=== PATIENT | female | born 1935 | race Caucasian/White ===

== ENCOUNTER → 2016-10-07 | Outpatient (CLI) | payer MEDICARE ==
[~2016-10-07] MED LIST: ALTA10CA10 PO; CALTTAB PO; CARV25TA PO; FURO1TAB61 PO; HUMALOG SQ; LANTUS2P SQ; LORA-474 PO; POTA10TA8 PO; ZOCO40TA PO
[2016-10-07 10:30] LABS: BICARBONATE 27.3 MEQ/L (21.0-32.0); POTASSIUM 4.6 MEQ/L (3.5-5.1)
== END ==
LOC: CLAB 09:38
PROVIDERS: ATTEND Internal Medicine Interventional Cardiology
DX: R60.0 Localized edema (principal); I25.10 Atherosclerotic heart disease of native coronary artery without angina pectoris; Z79.01 Long term (current) use of anticoagulants
CPT/HCPCS: 36415; 80048

== ENCOUNTER → 2016-10-19 | Outpatient (CLI) | payer MEDICARE ==
[2016-10-19 10:22] LABS: INTERNATIONAL NORMALIZED RATIO 2.7 RATIO; PROTHROMBIN TIME - PATIENT 31.1 SEC (9.8-11.6)
== END ==
LOC: CLAB 09:50
PROVIDERS: ATTEND Internal Medicine Interventional Cardiology
DX: I48.2 Chronic atrial fibrillation (principal); Z79.01 Long term (current) use of anticoagulants
CPT/HCPCS: 36415; 85610

== ENCOUNTER → 2016-11-09 | Outpatient (CLI) | payer MEDICARE ==
[2016-11-09 10:05] LABS: AUTOMATED NEUTROPHIL # 3.4 TH/MM3 (1.8-7.7); BASOPHIL # 0.1 TH/MM3 (0-0.2); BASOPHIL % 1.4 % (0.0-2.0); EOSINOPHIL # 0.2 TH/MM3 (0-0.4); EOSINOPHIL % 2.8 % (0.0-4.0); HEMATOCRIT 35.1 % (35.0-46.0); HEMO FLAGS DIFF FINAL; LYMPH % 29.7 % (9.0-44.0); LYMPHOCYTE # 1.7 TH/MM3 (1.0-4.8); MEAN CELL VOLUME 86.4 FL (80.0-100.0); MEAN CORPUSCULAR HGB CONC 33.6 % (32.0-36.0); MONO % 7.7 % (0.0-8.0); NEUT % 58.4 % (16.0-70.0); PLATELET COUNT 264 TH/MM3 (150-450); RED BLOOD COUNT 4.06 MIL/MM3 (4.00-5.30); WHITE BLOOD COUNT 5.9 TH/MM3 (4.0-11.0)
[2016-11-09 10:34] LABS: ALT (GPT) 29 U/L (10-53); ANION GAP 9 MEQ/L (5-15); AST (GOT) 18 U/L (15-37); BICARBONATE 24.1 MEQ/L (21.0-32.0); BLOOD UREA NITROGEN 74 MG/DL (7-18); CHLORIDE 106 MEQ/L (98-107); GLOMERULAR FILTRATION RATE 23 ML/MIN (>89); GLUCOSE,FASTING 143 MG/DL (74-99); POTASSIUM 4.5 MEQ/L (3.5-5.1); SODIUM (NA) 139 MEQ/L (136-145)
[2016-11-09 10:37] LABS: ALKALINE PHOSPHATASE 91 U/L (45-117); HDL CHOLESTEROL 45.7 MG/DL (40.0-60.0); LDL CHOLESTEROL 79 MG/DL (0-99); TOTAL BILIRUBIN ADULT 0.4 MG/DL (0.2-1.0)
[2016-11-09 10:48] LABS: HEMOGLOBIN A1a 1.2 %; HEMOGLOBIN A1b 2.5 %; HEMOGLOBIN Ao 79.2 %; HEMOGLOBIN LA1C 2.8 %; HEMOGLOBIN P3 7.7 %
== END ==
LOC: CLAB 09:44
PROVIDERS: ATTEND Internal Medicine
DX: E11.65 Type 2 diabetes mellitus with hyperglycemia (principal); I10 Essential (primary) hypertension
CPT/HCPCS: 36415; 80053; 80061; 83036; 85025

== ENCOUNTER → 2016-11-17 | Outpatient (CLI) | payer MEDICARE ==
[2016-11-17 10:05] LABS: INTERNATIONAL NORMALIZED RATIO 3.6 RATIO; PROTHROMBIN TIME - PATIENT 42.3 SEC (9.8-11.6)
== END ==
LOC: CLAB 09:32
PROVIDERS: ATTEND Internal Medicine Interventional Cardiology
DX: I48.2 Chronic atrial fibrillation (principal); Z79.01 Long term (current) use of anticoagulants
CPT/HCPCS: 36415; 85610

== ENCOUNTER → 2016-12-01 | Outpatient (CLI) | payer MEDICARE ==
[2016-12-01 10:24] LABS: INTERNATIONAL NORMALIZED RATIO 2.4 RATIO; PROTHROMBIN TIME - PATIENT 27.1 SEC (9.8-11.6)
== END ==
LOC: CLAB 09:48
PROVIDERS: ATTEND Internal Medicine Interventional Cardiology
DX: I48.2 Chronic atrial fibrillation (principal); Z79.01 Long term (current) use of anticoagulants
CPT/HCPCS: 36415; 85610

== ENCOUNTER → 2016-12-10 | Outpatient (CLI) | payer MEDICARE ==
[2016-12-10 10:15] LABS: HDL CHOLESTEROL 46.4 MG/DL (40.0-60.0)
== END ==
LOC: CLAB 09:26
PROVIDERS: ATTEND Internal Medicine Interventional Cardiology
DX: I25.9 Chronic ischemic heart disease, unspecified (principal); I25.10 Atherosclerotic heart disease of native coronary artery without angina pectoris; R60.0 Localized edema; Z79.01 Long term (current) use of anticoagulants
CPT/HCPCS: 36415; 80061; 84450; 84460

== ENCOUNTER → 2016-12-29 | Outpatient (CLI) | payer MEDICARE ==
[2016-12-29 10:09] LABS: INTERNATIONAL NORMALIZED RATIO 3.3 RATIO; PROTHROMBIN TIME - PATIENT 38.1 SEC (9.8-11.6)
== END ==
LOC: CLAB 09:42
PROVIDERS: ATTEND Internal Medicine Interventional Cardiology
DX: I48.2 Chronic atrial fibrillation (principal); Z79.01 Long term (current) use of anticoagulants
CPT/HCPCS: 36415; 85610

== ENCOUNTER → 2017-01-12 | Outpatient (CLI) | payer MEDICARE ==
[2017-01-12 10:15] LABS: PROTHROMBIN TIME - PATIENT 46.7 SEC (9.8-11.6)
== END ==
LOC: CLAB 09:45
PROVIDERS: ATTEND Internal Medicine Interventional Cardiology
DX: I48.2 Chronic atrial fibrillation (principal); Z79.01 Long term (current) use of anticoagulants
CPT/HCPCS: 36415; 85610

== ENCOUNTER → 2017-01-31 | Outpatient (CLI) | payer MEDICARE ==
[2017-01-31 09:52] LABS: INTERNATIONAL NORMALIZED RATIO 3.2 RATIO; PROTHROMBIN TIME - PATIENT 37.2 SEC (9.8-11.6)
== END ==
LOC: CLAB 09:15
PROVIDERS: ATTEND Internal Medicine Interventional Cardiology
DX: I48.2 Chronic atrial fibrillation (principal); Z79.01 Long term (current) use of anticoagulants
CPT/HCPCS: 36415; 85610

== ENCOUNTER → 2017-02-01 | Outpatient (CLI) | payer MEDICARE ==
[2017-02-01 09:05] LABS: INTERNATIONAL NORMALIZED RATIO 3.3 RATIO; PROTHROMBIN TIME - PATIENT 38.1 SEC (9.8-11.6)
== END ==
LOC: CLAB 08:40
PROVIDERS: ATTEND Internal Medicine Interventional Cardiology
DX: Z79.01 Long term (current) use of anticoagulants (principal)
CPT/HCPCS: 36415; 85610

== ENCOUNTER → 2017-02-03 | Outpatient (CLI) | payer MEDICARE ==
[2017-02-03 09:05] LABS: INTERNATIONAL NORMALIZED RATIO 2.8 RATIO; PROTHROMBIN TIME - PATIENT 32.1 SEC (9.8-11.6)
== END ==
LOC: CLAB 08:41
PROVIDERS: ATTEND Internal Medicine Interventional Cardiology
DX: G45.9 Transient cerebral ischemic attack, unspecified (principal); Z79.01 Long term (current) use of anticoagulants
CPT/HCPCS: 36415; 85610

== ENCOUNTER → 2017-02-16 | Outpatient (CLI) | payer MEDICARE ==
[2017-02-16 10:47] LABS: AUTOMATED NEUTROPHIL # 3.7 TH/MM3 (1.8-7.7); BASOPHIL # 0.1 TH/MM3 (0-0.2); EOSINOPHIL # 0.1 TH/MM3 (0-0.4); EOSINOPHIL % 2.3 % (0.0-4.0); HEMATOCRIT 33.3 % (35.0-46.0); HEMO FLAGS DIFF FINAL; LYMPH % 25.7 % (9.0-44.0); LYMPHOCYTE # 1.5 TH/MM3 (1.0-4.8); MEAN CELL VOLUME 87.1 FL (80.0-100.0); MEAN CORPUSCULAR HEMOGLOBIN 29.4 PG (27.0-34.0); MEAN CORPUSCULAR HGB CONC 33.7 % (32.0-36.0); MONO % 6.9 % (0.0-8.0); NEUT % 63.1 % (16.0-70.0); PLATELET COUNT 286 TH/MM3 (150-450); RED BLOOD COUNT 3.82 MIL/MM3 (4.00-5.30); RED CELL DISTRIBUTION WIDTH 14.1 % (11.6-17.2); WHITE BLOOD COUNT 5.8 TH/MM3 (4.0-11.0)
[2017-02-16 11:08] LABS: ANION GAP 6 MEQ/L (5-15); BICARBONATE 25.9 MEQ/L (21.0-32.0); BLOOD UREA NITROGEN 42 MG/DL (7-18); CHLORIDE 110 MEQ/L (98-107); GLOMERULAR FILTRATION RATE 33 ML/MIN (>89); GLUCOSE,FASTING 118 MG/DL (74-99); POTASSIUM 4.1 MEQ/L (3.5-5.1); SODIUM (NA) 142 MEQ/L (136-145)
[2017-02-16 11:17] LABS: ALKALINE PHOSPHATASE 109 U/L (45-117); ALT (GPT) 29 U/L (10-53); AST (GOT) 22 U/L (15-37); FREE T4 1.15 NG/DL (0.76-1.46); HDL CHOLESTEROL 44.6 MG/DL (40.0-60.0); LDL CHOLESTEROL 76 MG/DL (0-99); TOTAL BILIRUBIN ADULT 0.5 MG/DL (0.2-1.0)
[2017-02-16 17:53] LABS: HEMOGLOBIN A1a 0.9 %; HEMOGLOBIN A1b 2.3 %; HEMOGLOBIN Ao 80.5 %; HEMOGLOBIN LA1C 2.6 %; HEMOGLOBIN P3 7.3 %
== END ==
LOC: CLAB 09:43
PROVIDERS: ATTEND Internal Medicine
DX: E11.65 Type 2 diabetes mellitus with hyperglycemia (principal); E78.00 Pure hypercholesterolemia, unspecified
CPT/HCPCS: 36415; 80053; 80061; 83036; 84439; 84443; 85025

== ENCOUNTER → 2017-02-23 | Outpatient (CLI) | payer MEDICARE ==
[2017-02-23 09:48] LABS: INTERNATIONAL NORMALIZED RATIO 2.4 RATIO; PROTHROMBIN TIME - PATIENT 27.1 SEC (9.8-11.6)
== END ==
LOC: CLAB 09:13
PROVIDERS: ATTEND Internal Medicine Interventional Cardiology
DX: Z79.01 Long term (current) use of anticoagulants (principal)
CPT/HCPCS: 36415; 85610

== ENCOUNTER → 2017-03-22 | Outpatient (CLI) | payer MEDICARE ==
[2017-03-22 09:55] LABS: PROTHROMBIN TIME - PATIENT 23.2 SEC (9.8-11.6)
[2017-03-22 10:18] LABS: BICARBONATE 25.4 MEQ/L (21.0-32.0); POTASSIUM 4.5 MEQ/L (3.5-5.1)
== END ==
LOC: CLAB 09:22
PROVIDERS: ATTEND Internal Medicine Interventional Cardiology
DX: I48.2 Chronic atrial fibrillation (principal); I25.10 Atherosclerotic heart disease of native coronary artery without angina pectoris; I50.21 Acute systolic (congestive) heart failure; R60.0 Localized edema; R06.02 Shortness of breath; Z79.01 Long term (current) use of anticoagulants
CPT/HCPCS: 36415; 80048; 85610

== ENCOUNTER → 2017-04-18 | Outpatient (CLI) | payer MEDICARE ==
[2017-04-18 10:11] LABS: INTERNATIONAL NORMALIZED RATIO 1.9 RATIO; PROTHROMBIN TIME - PATIENT 21.7 SEC (9.8-11.6)
== END ==
LOC: CLAB 09:41
PROVIDERS: ATTEND Internal Medicine Interventional Cardiology
DX: I48.2 Chronic atrial fibrillation (principal); Z79.01 Long term (current) use of anticoagulants
CPT/HCPCS: 36415; 85610

== ENCOUNTER → 2017-05-02 | Outpatient (CLI) | payer MEDICARE ==
[2017-05-02 13:15] LABS: INTERNATIONAL NORMALIZED RATIO 1.9 RATIO; PROTHROMBIN TIME - PATIENT 21.7 SEC (9.8-11.6)
== END ==
LOC: CLAB 12:48
PROVIDERS: ATTEND Internal Medicine Interventional Cardiology
DX: I48.2 Chronic atrial fibrillation (principal); Z79.01 Long term (current) use of anticoagulants
CPT/HCPCS: 36415; 85610

== ENCOUNTER → 2017-05-17 | Outpatient (CLI) | payer MEDICARE ==
[2017-05-17 10:34] LABS: INTERNATIONAL NORMALIZED RATIO 2.4 RATIO; PROTHROMBIN TIME - PATIENT 27.3 SEC (9.8-11.6)
== END ==
LOC: CLAB 09:39
PROVIDERS: ATTEND Internal Medicine Interventional Cardiology
DX: I48.2 Chronic atrial fibrillation (principal); Z79.01 Long term (current) use of anticoagulants
CPT/HCPCS: 36415; 85610

== ENCOUNTER → 2017-05-31 | Outpatient (CLI) | payer MEDICARE ==
[2017-05-31 09:34] LABS: AUTOMATED NEUTROPHIL # 3.3 TH/MM3 (1.8-7.7); BASOPHIL # 0.1 TH/MM3 (0-0.2); BASOPHIL % 1.3 % (0.0-2.0); EOSINOPHIL # 0.2 TH/MM3 (0-0.4); EOSINOPHIL % 3.4 % (0.0-4.0); HEMATOCRIT 35.2 % (35.0-46.0); HEMO FLAGS DIFF FINAL; LYMPH % 28.7 % (9.0-44.0); LYMPHOCYTE # 1.6 TH/MM3 (1.0-4.8); MEAN CELL VOLUME 87.3 FL (80.0-100.0); MEAN CORPUSCULAR HEMOGLOBIN 29.3 PG (27.0-34.0); MEAN CORPUSCULAR HGB CONC 33.5 % (32.0-36.0); MONO % 7.3 % (0.0-8.0); NEUT % 59.3 % (16.0-70.0); PLATELET COUNT 233 TH/MM3 (150-450); RED BLOOD COUNT 4.04 MIL/MM3 (4.00-5.30); WHITE BLOOD COUNT 5.5 TH/MM3 (4.0-11.0)
[2017-05-31 10:33] LABS: CHLORIDE 111 MEQ/L (98-107); FREE T4 1.07 NG/DL (0.76-1.46); SODIUM (NA) 142 MEQ/L (136-145)
[2017-05-31 11:06] LABS: ALKALINE PHOSPHATASE 106 U/L (45-117); AST (GOT) 16 U/L (15-37); BLOOD UREA NITROGEN 59 MG/DL (7-18); GLOMERULAR FILTRATION RATE 29 ML/MIN (>89); GLUCOSE,FASTING 112 MG/DL (74-99)
[2017-05-31 11:07] LABS: ALT (GPT) 27 U/L (10-53); ANION GAP 8 MEQ/L (5-15); BICARBONATE 23.1 MEQ/L (21.0-32.0); TOTAL BILIRUBIN ADULT 0.4 MG/DL (0.2-1.0)
[2017-05-31 11:08] LABS: HDL CHOLESTEROL 43.7 MG/DL (40.0-60.0); LDL CHOLESTEROL 77 MG/DL (0-99)
[2017-05-31 12:30] LABS: HEMOGLOBIN A1a 0.9 %; HEMOGLOBIN A1b 2.3 %; HEMOGLOBIN Ao 80.5 %; HEMOGLOBIN LA1C 2.5 %; HEMOGLOBIN P3 7.2 %
== END ==
LOC: CLAB 09:06
PROVIDERS: ATTEND Internal Medicine Interventional Cardiology
DX: I25.10 Atherosclerotic heart disease of native coronary artery without angina pectoris (principal); I25.9 Chronic ischemic heart disease, unspecified; I50.21 Acute systolic (congestive) heart failure; R60.0 Localized edema; E78.00 Pure hypercholesterolemia, unspecified; E11.65 Type 2 diabetes mellitus with hyperglycemia; I10 Essential (primary) hypertension; R06.02 Shortness of breath
CPT/HCPCS: 36415; 80053; 80061; 83036; 84439; 84443; 85025

== ENCOUNTER → 2017-06-07 | Outpatient (CLI) | payer MEDICARE | LOC: CLAB 10:18 | PROVIDERS: ATTEND Internal Medicine Interventional Cardiology | DX: I48.2 Chronic atrial fibrillation (principal); Z79.01 Long term (current) use of anticoagulants | CPT/HCPCS: 36415; 85610 ==

== ENCOUNTER → 2017-07-12 | Outpatient (CLI) | payer MEDICARE ==
[2017-07-12 10:55] LABS: INTERNATIONAL NORMALIZED RATIO 2.8 RATIO; PROTHROMBIN TIME - PATIENT 31.9 SEC (9.8-11.6)
== END ==
LOC: CLAB 10:12
PROVIDERS: ATTEND Internal Medicine Interventional Cardiology
DX: I48.2 Chronic atrial fibrillation (principal); Z79.01 Long term (current) use of anticoagulants
CPT/HCPCS: 36415; 85610

== ENCOUNTER 2017-08-21 12:11 | Emergency (ER) | payer MEDICARE ==
[~2017-08-21] VITALS: Ht 157.5 cm; Wt 95.5 kg
[~2017-08-21 12:11] MED LIST changes: -ALTA10CA10 PO; +ALTA10CA12 PO
[2017-08-21 12:17] VITALS: BP 168/72; PULSE 78; RESP 16; TEMP 97.8; O2SAT 97
[2017-08-21] MEDS ORDERED: COUM2TAB PO ×2 (12:32)
[2017-08-21] MEDS ORDERED: COUM1TAB PO (12:32)
--- NOTE | 2017-08-21 12:38 | PD ---
HPI Chief Complaint: Skin Problem Time Seen by Provider: 12:27 Travel History International Travel<30 days: No Contact w/Intl Traveler<30days: No Traveled to known affect area: No History of Present Illness HPI This is an 82-year-old female who presents to the emergency department having woken up this morning with bleeding from her right upper arm. She woke up around 4 AM. The bleeding has been intermittent since then but every hour or so she notices that she's bled through the bandage that she's placed on the wound. Her symptoms of been moderate severity with no associated lightheadedness or dizziness. She does feel little bit anxious. She is on Coumadin and didn't get her INR checked last week when she was scheduled because she forgot. She says she is on Coumadin for open heart surgery. She says she doesn't have a mechanical valve, and she has had a possible TIA versus stroke in the past. PFSH Past Medical History Hx Anticoagulant Therapy: Yes (coumadin) Arthritis: Yes (HANDS) Asthma: No Autoimmune Disease: No Blood Disorders: No Anxiety: Yes Depression: No Heart Rhythm Problems: Yes Cancer: No Cardiac Catheterization: Yes Cardiovascular Problems: Yes High Cholesterol: Yes Chemotherapy: No Chest Pain: Yes Congestive Heart Failure: Yes COPD: No Cerebrovascular Accident: Yes (1984 AND POSSIBLE TIA 12/11/12) Coronary Artery Disease: Yes Diabetes: Yes Patient Takes Glucophage: No Diminished Hearing: Yes ([place] BILATERAL) Endocrine: Yes Gastrointestinal Disorders: Yes GERD: No Glaucoma: No Genitourinary: No Headaches: No Hepatitis: No Hiatal Hernia: Yes Hypertension: Yes Immune Disorder: No Implanted Vascular Access Dvce: Yes Kidney Stones: No Musculoskeletal: Yes (ARTHRITIS HANDS) Neurologic: Yes (BELLS PALSY) Psychiatric: Yes Reproductive: No Respiratory: No Immunizations Current: Yes Migraines: No Myocardial Infarction: Yes Radiation Therapy: No Renal Failure: No Seizures: No Sickle Cell Disease: No Sleep Apnea: No Thyroid Disease: No Ulcer: No Tetanus Vaccination: > 5 Years Influenza Vaccination: No PNEUMOCCOCAL Vaccine (Year): 1 ?: Not Menopausal: Yes Past Surgical History Abdominal Surgery: Yes (GALL BLADDER) AICD: Yes Appendectomy: No Arteriovenous Shunt: No Body Medical Devices: AICD Cardiac Surgery: Yes (DEFIBRILLATOR) Cholecystectomy: Yes Coronary Artery Bypass Graft: Yes (X4 ) Coronary Stent: Yes (X1) Ear Surgery: No Endocrine Surgery: No Eye Surgery: Yes (LEFT EYE CATARACTS) Genitourinary Surgery: No Gynecologic Surgery: Yes (ABSCESS GLAND VAGINA) Insulin Pump: No Joint Replacement: No Neurologic Surgery: No Oral Surgery: No Pacemaker: Yes Thoracic Surgery: No Other Surgery: Yes (CABG X4/GALLBLADDER) Family History Family Myocardial Infarction: Yes Social History Alcohol Use: No Tobacco Use: No Substance Use: No Allergies-Medications (Allergen,Severity, Reaction): Coded Allergies: ciprofloxacin (Unverified Allergy, Severe, Numbness, 08/21/17) diatrizoate meglumine (Unverified Allergy, Severe, Hives, 08/21/17) erythromycin base (Unverified Allergy, Severe, MAKES ME DOOPY, 08/21/17) gadobenic acid (Unverified Allergy, Severe, Hives, 08/21/17) gadodiamide (Unverified Allergy, Severe, Hives, 08/21/17) gadoteridol (Unverified Allergy, Severe, Hives, 08/21/17) iodixanol (Unverified Allergy, Severe, Hives, 08/21/17) iohexol (Unverified Allergy, Severe, Hives, 08/21/17) penicillin G (Unverified Allergy, Severe, RASH, 08/21/17) colchicine (Unverified Allergy, Unknown, 08/21/17) Reported Meds & Prescriptions Reported Meds & Active Scripts Active Ativan (Lorazepam) 1 Mg Tab 1 Mg PO DIRECTED PRN 1/2 am, 10/04 4:30pm, 1 hs Zocor (Simvastatin) 40 Mg Tab 40 Mg PO HS Reported Coumadin (Warfarin) 1 Mg Tab 1.5 Mg PO TUE/TUE/TUE/TUE/TUE Coumadin (Warfarin) 2 Mg Tab 2 Mg PO TUESDAY Coumadin (Warfarin) 2 Mg Tab 2 Mg PO TUESDAY Lasix (Furosemide) 80 Mg Tab 80 Mg PO DAILY Lantus Inj (Insulin Glargine) 1,000 Unit/10 Ml Vial 50 Units SQ HS Humalog Inj (Insulin Human Lispro) 1,000 Unit/10 Ml Vial 2-12 Units SQ ACHS SLIDING SCALE Max dose at bedtime:( )units; sugars < 70,(0)units; sugars 150-199,(2)units; sugars 200-249,(4)units; sugars 250-299,(7)units; sugars 300-349,(10)units; sugars more than 349,(12)units. Carvedilol 25 Mg Tab 25 Mg PO BID Altace (Ramipril) 10 Mg Cap 10 Mg PO BID Review of Systems Except as stated in HPI: all other systems reviewed are Neg Physical Exam Narrative GENERAL:Well appearing, no acute distress SKIN: Pale-appearing, punctate lesion on the right upper extremity on the mid humerus with no active bleeding HEAD: Atraumatic. Normocephalic. EYES: Pupils equal and round. No injection or drainage. ENT: Moist mucous membranes NECK: Trachea midline. CARDIOVASCULAR: Regular rate and rhythm. No murmur appreciated. RESPIRATORY: Clear to auscultation. Breath sounds equal bilaterally. GASTROINTESTINAL: Abdomen soft, non-tender, nondistended. MUSCULOSKELETAL: No obvious deformities. NEUROLOGICAL: Awake and alert. No obvious cranial nerve deficits. Moving all extremities. PSYCHIATRIC: Appropriate mood and affect; insight and judgment normal. Data Data Last Documented VS Vital Signs Date Time Temp Pulse Resp B/P (MAP) Pulse Ox O2 Delivery O2 Flow Rate FiO2 08/21/17 12:17 97.8 78 16 168/72 (104) 97 Room Air Orders Orders Cbc No Diff, Includes Plts (08/21/17 12:34) Prothrombin Time / Inr (Pt) (08/21/17 12:34) Gelatin 12 Mm/7 Mm Top (Gelfoam 12 Mm/7 (08/21/17 12:45) MDM Medical Decision Making Medical Screen Exam Complete: Yes Emergency Medical Condition: Yes Differential Diagnosis Supratherapeutic INR, skin tear, laceration, anemia Narrative Course This is a 82-year-old female who presents to the emergency department with bleeding from her right upper extremity that started this morning. It's unclear how much blood she lost. She appears a little pale on exam. I think it 's reasonable to check a CBC and an INR. If CBC and INR are normal patient can be discharged home. If INR is elevated we should consider holding her Coumadin depending on the level of the INR. I would apply Gelfoam to the wound to prevent further rebleeding. Bibi Alexander MD Aug 21, 2017 12:38
[2017-08-21] MEDS ORDERED: GELATIN 12 MM/7 MM FOAM TOPICAL ONE (12:45)
[2017-08-21 13:12] LABS: HEMATOCRIT 35.3 % (35.0-46.0); MEAN CELL VOLUME 88.7 FL (80.0-100.0); MEAN CORPUSCULAR HGB CONC 33.9 % (32.0-36.0); PLATELET COUNT 222 TH/MM3 (150-450); RED BLOOD COUNT 3.98 MIL/MM3 (4.00-5.30); RED CELL DISTRIBUTION WIDTH 14.2 % (11.6-17.2); REVIEW FLAG FINAL; WHITE BLOOD COUNT 4.5 TH/MM3 (4.0-11.0)
--- NOTE | 2017-08-21 13:18 | PD ---
Physical Exam Date Seen by Provider: Aug 21, 2017 Time Seen by Provider: 13:17 Narrative 82-year-old female patient presents to the emergency department for bleeding from her right upper arm that started around 4 AM this morning. At this time, the bleeding has stopped. She is on Coumadin. Patient was previously evaluated by Dr. Alexander and I resumed care. Data Data Last Documented VS Vital Signs Date Time Temp Pulse Resp B/P (MAP) Pulse Ox O2 Delivery O2 Flow Rate FiO2 08/21/17 12:17 97.8 78 16 168/72 (104) 97 Room Air Orders Orders Cbc No Diff, Includes Plts (08/21/17 12:34) Prothrombin Time / Inr (Pt) (08/21/17 12:34) Gelatin 12 Mm/7 Mm Top (Gelfoam 12 Mm/7 (08/21/17 12:45) Labs Laboratory Tests Test 08/21/17 13:00 White Blood Count 4.5 TH/MM3 Red Blood Count 3.98 MIL/MM3 Hemoglobin 11.9 GM/DL Hematocrit 35.3 % Mean Corpuscular Volume 88.7 FL Mean Corpuscular Hemoglobin 30.0 PG Mean Corpuscular Hemoglobin Concent 33.9 % Red Cell Distribution Width 14.2 % Platelet Count 222 TH/MM3 Mean Platelet Volume 8.3 FL Prothrombin Time 29.8 SEC Prothromb Time International Ratio 2.6 RATIO [facility] Medical Record Reviewed: Yes Supervised Visit with BASILIA: No Differential Diagnosis Skin tear versus laceration versus anemia versus subtherapeutic INR Narrative Course 82-year-old female presents to the emergency department for evaluation of bleeding to her right upper arm. Gelfoam is applied to the wound however this wound has stopped bleeding at this time. CBC, PT/INR ordered and pending. CBC is unremarkable. PT/INR is 29.8/2.6. Patient's had no further bleeding. She is instructed to follow-up with her primary care physician. She is to return here if she has any worsening symptoms or recurrent bleeding that she cannot stop. She verbalizes agreement. The patient was discharged in stable condition with instructions, including return instructions and follow up instructions. Diagnosis Primary Impression: Abrasion of arm, right Qualified Codes: S40.811A - Abrasion of right upper arm, initial encounter Referrals: Primary Care Physician call for appointment Patient Instructions: Abrasion (ED), General Instructions Additional Instruction: Leave gelfoam in place. It will absorb. Follow-up with your primary care physician. Return to the emergency department for any acute worsening of symptoms. Med/Other Pt SpecificInfo: No Change to Meds Disposition: 01 DISCHARGE HOME Condition: Stable Lisette Almanza LEANDRO Aug 21, 2017 13:18
[2017-08-21 13:19] LABS: INTERNATIONAL NORMALIZED RATIO 2.6 RATIO; PROTHROMBIN TIME - PATIENT 29.8 SEC (9.8-11.6)
[2017-08-21 13:55] VITALS: BP 124/78; TEMP 97.8
== END 2017-08-21 13:55 | disposition home or self-care (01) ==
LOC: NEPD 12:11
DX: S40.811A Abrasion of right upper arm, initial encounter (principal); F41.9 Anxiety disorder, unspecified; E78.00 Pure hypercholesterolemia, unspecified; I11.0 Hypertensive heart disease with heart failure; I50.9 Heart failure, unspecified; E11.9 Type 2 diabetes mellitus without complications; I25.10 Atherosclerotic heart disease of native coronary artery without angina pectoris; Z86.73 Personal history of transient ischemic attack (TIA), and cerebral infarction without residual deficits; Z79.01 Long term (current) use of anticoagulants
CPT/HCPCS: 85027; 85610; 99283

== ENCOUNTER → 2017-09-02 | Outpatient (CLI) | payer MEDICARE ==
[~2017-09-02] MED LIST changes: -CALTTAB PO; +COUM1TAB PO; +COUM2TAB PO; -POTA10TA8 PO
[2017-09-02 09:48] LABS: AUTOMATED NEUTROPHIL # 2.7 TH/MM3 (1.8-7.7); BASOPHIL # 0.1 TH/MM3 (0-0.2); BASOPHIL % 1.4 % (0.0-2.0); EOSINOPHIL # 0.1 TH/MM3 (0-0.4); EOSINOPHIL % 2.8 % (0.0-4.0); HEMATOCRIT 33.7 % (35.0-46.0); HEMO FLAGS DIFF FINAL; LYMPH % 28.4 % (9.0-44.0); LYMPHOCYTE # 1.3 TH/MM3 (1.0-4.8); MEAN CELL VOLUME 88.2 FL (80.0-100.0); MEAN CORPUSCULAR HEMOGLOBIN 29.4 PG (27.0-34.0); MEAN CORPUSCULAR HGB CONC 33.3 % (32.0-36.0); MONO % 7.7 % (0.0-8.0); NEUT % 59.7 % (16.0-70.0); PLATELET COUNT 228 TH/MM3 (150-450); RED BLOOD COUNT 3.82 MIL/MM3 (4.00-5.30); RED CELL DISTRIBUTION WIDTH 13.9 % (11.6-17.2); WHITE BLOOD COUNT 4.5 TH/MM3 (4.0-11.0)
[2017-09-02 09:54] LABS: BACTERIA, URINE RARE /hpf; BLOOD, URINE TRACE (NEG); COMMENT (UR) CULT NOT INDICATED; CULTURE IF INDICATED CULT NOT INDICATED; GLUCOSE,URINE NEG (NEG); KETONE, URINE NEG (NEG); MUCUS URINE FEW /lpf (OCC); NITRITE,URINE NEG (NEG); PH, URINE 5.5 (5.0-8.5); SQUAMOUS EPITHELIAL CELL URINE 3 /hpf (0-5); URINE COLOR YELLOW (YELLW/STRAW)
[2017-09-02 10:08] LABS: ANION GAP 8 MEQ/L (5-15); AST (GOT) 8 U/L (15-37); BICARBONATE 24.1 MEQ/L (21.0-32.0); BLOOD UREA NITROGEN 58 MG/DL (7-18); CHLORIDE 109 MEQ/L (98-107); GLOMERULAR FILTRATION RATE 30 ML/MIN (>89); GLUCOSE,FASTING 185 MG/DL (74-99); POTASSIUM 4.2 MEQ/L (3.5-5.1); SODIUM (NA) 141 MEQ/L (136-145)
[2017-09-02 10:21] LABS: ALKALINE PHOSPHATASE 105 U/L (45-117); ALT (GPT) 17 U/L (10-53); HDL CHOLESTEROL 47.1 MG/DL (40.0-60.0); LDL CHOLESTEROL 76 MG/DL (0-99); TOTAL BILIRUBIN ADULT 0.4 MG/DL (0.2-1.0)
[2017-09-02 10:24] LABS: MICRO ALBUMIN RANDOM URINE RAW 29.4 MG/L (0.0-30.0)
[2017-09-02 12:52] LABS: HEMOGLOBIN A1b 2.3 %; HEMOGLOBIN Ao 79.8 %; HEMOGLOBIN LA1C 3.2 %; HEMOGLOBIN P3 7.5 %
== END ==
LOC: CLAB 09:18
PROVIDERS: ATTEND Internal Medicine
DX: E11.65 Type 2 diabetes mellitus with hyperglycemia (principal); I10 Essential (primary) hypertension
CPT/HCPCS: 36415; 80053; 80061; 81001; 82043; 83036; 84443; 85025

== ENCOUNTER → 2017-09-20 | Outpatient (CLI) | payer MEDICARE ==
[2017-09-20 10:00] LABS: INTERNATIONAL NORMALIZED RATIO 3.1 RATIO; PROTHROMBIN TIME - PATIENT 31.7 SEC (9.8-11.6)
== END ==
LOC: CLAB 09:31
PROVIDERS: ATTEND Internal Medicine Interventional Cardiology
DX: I48.2 Chronic atrial fibrillation (principal); Z79.01 Long term (current) use of anticoagulants
CPT/HCPCS: 36415; 85610

== ENCOUNTER → 2017-10-10 | Outpatient (CLI) | payer MEDICARE ==
[2017-10-10 14:01] LABS: INTERNATIONAL NORMALIZED RATIO 2.5 RATIO; PROTHROMBIN TIME - PATIENT 25.1 SEC (9.8-11.6)
== END ==
LOC: CLAB 12:28
PROVIDERS: ATTEND Internal Medicine Interventional Cardiology
DX: I48.2 Chronic atrial fibrillation (principal); Z79.01 Long term (current) use of anticoagulants
CPT/HCPCS: 36415; 85610

== ENCOUNTER 2017-10-25 18:42 | Inpatient (IN) | payer MEDICARE ==
[~2017-10-25] VITALS: Ht 157.5 cm; Wt 102.5 kg
[2017-10-25 18:54] VITALS: BP 128/89; PULSE 79; RESP 23; TEMP 98.1; O2SAT 95
[2017-10-25] MEDS ORDERED: FURO40TA PO (19:10)
[2017-10-25] MEDS ORDERED: INSP50TA PO (19:10)
[2017-10-25] MEDS ORDERED: ZOCO20TA PO (19:10)
[2017-10-25] MEDS ORDERED: ULOR40TA PO (19:10)
[2017-10-25] MEDS ORDERED: RAMI2.5C PO (19:10)
[2017-10-25] MEDS ORDERED: SODIUM CHLORID 0.9% 500 ML INJ 500 ML IV ONE (19:15)
[2017-10-25] MEDS ORDERED: SODIUM CHLORIDE 0.9% FLUSH 10 ML FLUSH IV FLUSH PRN (19:15)
--- NOTE | 2017-10-25 19:17 | PD ---
HPI Chief Complaint: General Weakness Time Seen by Provider: 18:48 Travel History International Travel<30 days: No Contact w/Intl Traveler<30days: No Traveled to known affect area: No History of Present Illness HPI 82-year-old female with PMH of HTN, DM,CHF, CAD status post CABG and stenting, on Coumadin presents to the ED for evaluation of 3 day history of non-bloody diarrhea. Patient denies fever, chills, nausea, vomiting, chest pain, shortness of breath, abdominal pain, dysuria, back pain. She denies recent use of antibiotics. She denies history of C. difficile. She denies sick contacts. She states that her blood sugars have been over 100 until today when she had a reading on the 50s. She states that she drank a soda which improved her blood sugar but caused further episodes of diarrhea. She's been drinking Gatorade but no other treatment attempted at home. PFSH Past Medical History Hx Anticoagulant Therapy: Yes (coumadin) Arthritis: Yes (HANDS) Asthma: No Autoimmune Disease: No Blood Disorders: No Anxiety: Yes Depression: No Heart Rhythm Problems: Yes Cancer: No Cardiac Catheterization: Yes Cardiovascular Problems: Yes High Cholesterol: Yes Chemotherapy: No Chest Pain: Yes Congestive Heart Failure: Yes COPD: No Cerebrovascular Accident: Yes (1984 AND POSSIBLE TIA 12/11/12) Coronary Artery Disease: Yes Diabetes: Yes Patient Takes Glucophage: No Diminished Hearing: Yes ([place] BILATERAL) Endocrine: Yes Gastrointestinal Disorders: Yes GERD: No Glaucoma: No Genitourinary: No Headaches: No Hepatitis: No Hiatal Hernia: Yes Hypertension: Yes Immune Disorder: No Implanted Vascular Access Dvce: Yes Kidney Stones: No Musculoskeletal: Yes (ARTHRITIS HANDS) Neurologic: Yes (BELLS PALSY) Psychiatric: Yes Reproductive: No Respiratory: No Immunizations Current: Yes Migraines: No Myocardial Infarction: Yes Radiation Therapy: No Renal Failure: No Seizures: No Sickle Cell Disease: No Sleep Apnea: No Thyroid Disease: No Ulcer: No PNEUMOCCOCAL Vaccine (Year): 1 Menopausal: Yes Past Surgical History Abdominal Surgery: Yes (GALL BLADDER) AICD: Yes Appendectomy: No Arteriovenous Shunt: No Body Medical Devices: AICD Cardiac Surgery: Yes (DEFIBRILLATOR) Cholecystectomy: Yes Coronary Artery Bypass Graft: Yes (X4 ) Coronary Stent: Yes (X1) Ear Surgery: No Endocrine Surgery: No Eye Surgery: Yes (LEFT EYE CATARACTS) Genitourinary Surgery: No Gynecologic Surgery: Yes (ABSCESS GLAND VAGINA) Insulin Pump: No Joint Replacement: No Neurologic Surgery: No Oral Surgery: No Pacemaker: Yes Thoracic Surgery: No Other Surgery: Yes (CABG X4/GALLBLADDER) Family History Family Myocardial Infarction: Yes Social History Alcohol Use: No Tobacco Use: No Substance Use: No Allergies-Medications (Allergen,Severity, Reaction): Coded Allergies: ciprofloxacin (Unverified Allergy, Severe, Numbness, 10/25/17) diatrizoate meglumine (Unverified Allergy, Severe, Hives, 10/25/17) erythromycin base (Unverified Allergy, Severe, MAKES ME DOOPY, 10/25/17) gadobenic acid (Unverified Allergy, Severe, Hives, 10/25/17) gadodiamide (Unverified Allergy, Severe, Hives, 10/25/17) gadoteridol (Unverified Allergy, Severe, Hives, 10/25/17) iodixanol (Unverified Allergy, Severe, Hives, 10/25/17) iohexol (Unverified Allergy, Severe, Hives, 10/25/17) penicillin G (Unverified Allergy, Severe, RASH, 10/25/17) colchicine (Unverified Allergy, Unknown, 10/25/17) Reported Meds & Prescriptions Reported Meds & Active Scripts Active Ativan (Lorazepam) 1 Mg Tab 1 Mg PO DIRECTED PRN 1/2 am, 12 4:30pm, 1 hs Reported Zocor (Simvastatin) 20 Mg Tab 20 Mg PO HS Uloric (Febuxostat) 40 Mg Tab 40 Mg PO DAILY Inspra (Eplerenone) 50 Mg Tab 50 Mg PO DAILY Furosemide 40 Mg Tab 40 Mg PO SUTUTHSA Take 1 tablet (40mg) daily on Tuesday,Tuesday, and Tuesday Ramipril 2.5 Mg Cap 2.5 Mg PO BID Coumadin (Warfarin) 1 Mg Tab 1.5 Mg PO SUSA Take 1&1/2 tablets (1.5mg) daily on Tuesday and Tuesday Coumadin (Warfarin) 2 Mg Tab 2 Mg PO MOTUWETHFR Take 1 tablet (2mg) daily on Tuesday,Tuesday,Tuesday, and Tuesday Lantus Inj (Insulin Glargine) 1,000 Unit/10 Ml Vial 60 Units SQ DAILY Humalog Inj (Insulin Human Lispro) 1,000 Unit/10 Ml Vial 2-12 Units SQ ACHS SLIDING SCALE Sliding Scale as directed Carvedilol 25 Mg Tab 12.5 Mg PO BID Review of Systems Except as stated in HPI: all other systems reviewed are Neg Physical Exam Narrative GENERAL: Obese white female in no acute distress.. SKIN: Focused skin assessment warm/dry. HEAD: Normocephalic. EYES: No scleral icterus. No injection or drainage. NECK: Supple, trachea midline. No JVD or lymphadenopathy. CARDIOVASCULAR: Regular rate and rhythm without murmurs, gallops, or rubs. RESPIRATORY: Breath sounds clear and equal bilaterally. No accessory muscle use. GASTROINTESTINAL: Abdomen soft, non-tender, nondistended. Active bowel sounds. RECTAL EXAM: No masses or tenderness, stool is brown. Rectal vault is empty. Guaiac negative. MUSCULOSKELETAL: No cyanosis, or edema. BACK: Nontender without obvious deformity. No CVA tenderness. Data Data Last Documented VS Vital Signs Date Time Temp Pulse Resp B/P (MAP) Pulse Ox O2 Delivery O2 Flow Rate FiO2 10/25/17 19:34 64 18 126/58 (80) 97 Nasal Cannula 2.00 10/25/17 18:54 98.1 Orders Orders Complete Blood Count With Diff (10/25/17 19:01) Comprehensive Metabolic Panel (10/25/17 19:01) Lipase (10/25/17 19:01) Prothrombin Time / Inr (Pt) (10/25/17 19:01) Act Partial Throm Time (Ptt) (10/25/17 19:01) Urinalysis - C+S If Indicated (10/25/17 19:01) Iv Access Insert/Monitor (10/25/17 19:01) Ecg Monitoring (10/25/17 19:01) Oximetry (10/25/17 19:01) Sodium Chloride 0.9% Flush (Ns Flush) (10/25/17 19:15) Sodium Chlorid 0.9% 500 Ml Inj (Ns 500 M (10/25/17 19:15) Stool Ova And Parasite Screen (10/25/17 21:05) Enteric Path (Stool) (10/25/17 21:05) C Diff Toxin Pcr (10/25/17 21:05) Cath For Specimen (10/25/17 22:41) Admit Order (Ed Use Only) (10/25/17 22:59) Labs Laboratory Tests Test 10/25/17 19:00 10/25/17 21:00 White Blood Count 5.4 TH/MM3 Red Blood Count 4.22 MIL/MM3 Hemoglobin 12.2 GM/DL Hematocrit 37.1 % Mean Corpuscular Volume 87.9 FL Mean Corpuscular Hemoglobin 28.9 PG Mean Corpuscular Hemoglobin Concent 32.9 % Red Cell Distribution Width 13.8 % Platelet Count 180 TH/MM3 Mean Platelet Volume 8.6 FL Neutrophils (%) (Auto) 83.6 % Lymphocytes (%) (Auto) 9.6 % Monocytes (%) (Auto) 5.8 % Eosinophils (%) (Auto) 0.5 % Basophils (%) (Auto) 0.5 % Neutrophils # (Auto) 4.5 TH/MM3 Lymphocytes # (Auto) 0.5 TH/MM3 Monocytes # (Auto) 0.3 TH/MM3 Eosinophils # (Auto) 0.0 TH/MM3 Basophils # (Auto) 0.0 TH/MM3 CBC Comment AUTO DIFF Differential Comment AUTO DIFF CONFIRMED Platelet Estimate NORMAL Platelet Morphology Comment NORMAL Basophilic Stippling FAINT Prothrombin Time 28.2 SEC Prothromb Time International Ratio 2.8 RATIO Activated Partial Thromboplast Time 32.5 SEC Blood Urea Nitrogen 69 MG/DL Creatinine 2.04 MG/DL Random Glucose 77 MG/DL Total Protein 7.6 GM/DL Albumin 2.8 GM/DL Calcium Level 8.4 MG/DL Alkaline Phosphatase 98 U/L Aspartate Amino Transf (AST/SGOT) 32 U/L Alanine Aminotransferase (ALT/SGPT) 37 U/L Total Bilirubin 0.5 MG/DL Sodium Level 134 MEQ/L Potassium Level 4.1 MEQ/L Chloride Level 103 MEQ/L Carbon Dioxide Level 20.5 MEQ/L Anion Gap 11 MEQ/L Estimat Glomerular Filtration Rate 23 ML/MIN Lipase 91 U/L Urine Color YELLOW Urine Turbidity CLEAR Urine pH 5.5 Urine Specific [place] 1.017 Urine Protein TRACE mg/dL Urine Glucose (UA) NEG mg/dL Urine Ketones NEG mg/dL Urine Occult Blood SMALL Urine Nitrite NEG Urine Bilirubin NEG Urine Urobilinogen 2.0 MG/DL Urine Leukocyte Esterase NEG Urine RBC 1 /hpf Urine WBC 10 /hpf Urine Transitional Epithelial Cells <1 /hpf Urine Renal Epithelial Cells <1 /hpf Urine Mucus FEW /lpf Microscopic Urinalysis Comment CULTURE INDICATED Stool C. difficile Toxin (PCR) NEGATIVE Stl C. difficile Toxin Epiderm 027 PRESUMPTIVE NEGATIVE MDM Medical Decision Making Medical Screen Exam Complete: Yes Emergency Medical Condition: Yes Differential Diagnosis Infectious diarrhea versus dehydration versus metabolic derangement versus constipation versus other Narrative Course 82-year-old female with PMH of HTN, DM,CHF, CAD status post CABG and stenting, on Coumadin presents to the ED for evaluation of 3 day history of non-bloody diarrhea. Patient denies recent use of antibiotics, history of C. difficile. Positive reviewed. On exam the patient is an obese white female in no acute distress. She is having multiple episodes of loose, foul-smelling stool in the ED. Stool studies are ordered and pending. Patient is increasingly weak, unable to transfer from the bed to the bedside commode. Lab work reveals significant dehydration. We'll admit for observation, initiate antibiotics pending the results of the stool studies. I spoke with Dr. Hart who agrees to accept the patient to the medicine service. Please see medicine notes for disposition. [facility] Point of Care Internal Pos. & Neg. Controls: Passed Fecal Specimen Occult Blood: Negative Alena Can Oct 25, 2017 19:17
[2017-10-25 19:32] VITALS: O2SAT 97
[2017-10-25 19:32] LABS: AUTOMATED NEUTROPHIL # 4.5 TH/MM3 (1.8-7.7); BASOPHIL % 0.5 % (0.0-2.0); EOSINOPHIL % 0.5 % (0.0-4.0); HEMATOCRIT 37.1 % (35.0-46.0); HEMOGLOBIN 12.2 GM/DL (11.6-15.3); LYMPH % 9.6 % (9.0-44.0); LYMPHOCYTE # 0.5 TH/MM3 (1.0-4.8); MEAN CELL VOLUME 87.9 FL (80.0-100.0); MEAN CORPUSCULAR HEMOGLOBIN 28.9 PG (27.0-34.0); MEAN CORPUSCULAR HGB CONC 32.9 % (32.0-36.0); MEAN PLATELET VOLUME 8.6 FL (7.0-11.0); MONO % 5.8 % (0.0-8.0); MONOCYTE # 0.3 TH/MM3 (0-0.9); NEUT % 83.6 % (16.0-70.0); PLATELET COUNT 180 TH/MM3 (150-450); RED BLOOD COUNT 4.22 MIL/MM3 (4.00-5.30); RED CELL DISTRIBUTION WIDTH 13.8 % (11.6-17.2); WHITE BLOOD COUNT 5.4 TH/MM3 (4.0-11.0)
[2017-10-25 19:34] VITALS: BP 126/58; PULSE 64; RESP 18; O2SAT 97
[2017-10-25 19:41] LABS: INTERNATIONAL NORMALIZED RATIO 2.8 RATIO; PROTHROMBIN TIME - PATIENT 28.2 SEC (9.8-11.6)
[2017-10-25 19:46] LABS: ALBUMIN 2.8 GM/DL (3.4-5.0); AST (GOT) 32 U/L (15-37); BICARBONATE 20.5 MEQ/L (21.0-32.0); BLOOD UREA NITROGEN 69 MG/DL (7-18); CALCIUM 8.4 MG/DL (8.5-10.1); CHLORIDE 103 MEQ/L (98-107); CREATININE 2.04 MG/DL (0.50-1.00); GLOMERULAR FILTRATION RATE 23 ML/MIN (>89); GLUCOSE,RANDOM 77 MG/DL (74-106); LIPASE 91 U/L (73-393); SODIUM (NA) 134 MEQ/L (136-145)
[2017-10-25 19:47] LABS: ALT (GPT) 37 U/L (10-53)
[2017-10-25 19:50] LABS: ALKALINE PHOSPHATASE 98 U/L (45-117); TOTAL BILIRUBIN ADULT 0.5 MG/DL (0.2-1.0); TOTAL PROTEIN 7.6 GM/DL (6.4-8.2)
[2017-10-25 23:05] VITALS: BP 133/67; PULSE 74; RESP 20; O2SAT 98
[2017-10-25 23:30] LABS: BILIRUBIN, URINE NEG (NEG); BLOOD, URINE SMALL (NEG); GLUCOSE,URINE NEG (NEG); KETONE, URINE NEG (NEG); MUCUS URINE FEW /lpf (OCC); NITRITE,URINE NEG (NEG); PH, URINE 5.5 (5.0-8.5); RENAL EPITHELIAL CELLS <1 /hpf; TRANSITIONAL EPI CELLS, URINE <1 /hpf; URINE COLOR YELLOW (YELLW/STRAW); URINE LEUKOCYTE ESTERASE NEG (NEG)
[2017-10-26] VITALS (11 sets, daily range): BP systolic 112–205; BP diastolic 54–76; PULSE 64–98; RESP 16–20; TEMP 98.2–99.6; O2SAT 98–100
[2017-10-26] MEDS ORDERED: NALOXONE HCL 0.4 MG/ML AMP IV PUSH PRN (00:15)
[2017-10-26] MEDS ORDERED: SODIUM CHLORIDE 0.9% FLUSH 10 ML FLUSH IV FLUSH PRN (00:15)
[2017-10-26] MEDS ORDERED: DEXTROSE 50% IN WATER 50 ML VIAL(D50) IV PUSH PRN (00:30)
[2017-10-26] MEDS ORDERED: GLUCAGON 1 MG/ML VIAL OTHER PRN (00:30)
[2017-10-26] MEDS ORDERED: NYSTATIN 100,000 U/GM OINT 15 GM TUBE TOPICAL ONE (00:45)
[2017-10-26 01:01] LABS: INTERNATIONAL NORMALIZED RATIO 3.4 RATIO; PROTHROMBIN TIME - PATIENT 34.1 SEC (9.8-11.6)
[2017-10-26] MEDS: INSULIN ASPART SUPPLEMENTAL SCALE SQ SCH ×4 (07:51→20:43)
[2017-10-26] MEDS ORDERED: EPLERENONE 50 MG PO SCH (09:00)
[2017-10-26] MEDS: CARVEDILOL 12.5 MG TAB PO SCH ×2 (09:40→20:42)
[2017-10-26] MEDS: SODIUM CHLORIDE 0.9% FLUSH 10 ML FLUSH IV FLUSH SCH ×2 (09:40→20:43)
[2017-10-26] MEDS: EPLERENONE 25 MG TAB PO SCH (09:41)
[2017-10-26 11:06] LABS: AUTOMATED NEUTROPHIL # 3.8 TH/MM3 (1.8-7.7); BASOPHIL % 0.2 % (0.0-2.0); HEMATOCRIT 34.6 % (35.0-46.0); HEMOGLOBIN 11.4 GM/DL (11.6-15.3); LYMPH % 11.6 % (9.0-44.0); LYMPHOCYTE # 0.6 TH/MM3 (1.0-4.8); MEAN CELL VOLUME 88.2 FL (80.0-100.0); MEAN CORPUSCULAR HEMOGLOBIN 29.2 PG (27.0-34.0); MEAN CORPUSCULAR HGB CONC 33.1 % (32.0-36.0); MEAN PLATELET VOLUME 8.7 FL (7.0-11.0); MONO % 9.9 % (0.0-8.0); MONOCYTE # 0.5 TH/MM3 (0-0.9); NEUT % 78.3 % (16.0-70.0); PLATELET COUNT 192 TH/MM3 (150-450); RED BLOOD COUNT 3.92 MIL/MM3 (4.00-5.30); RED CELL DISTRIBUTION WIDTH 13.7 % (11.6-17.2); WHITE BLOOD COUNT 4.9 TH/MM3 (4.0-11.0)
[2017-10-26 11:27] LABS: BICARBONATE 22.7 MEQ/L (21.0-32.0); CALCIUM 8.6 MG/DL (8.5-10.1); CREATININE 1.92 MG/DL (0.50-1.00)
--- NOTE | 2017-10-26 13:04 | HHI.HP ---
[facility] Enmanuel Ford MD Admission Diagnosis infectious diarrhea, dehydration, weakness Diagnoses: Chief Complaint: diarrhea Travel History International Travel<30 Days: No Contact w/Intl Traveler <30 Da: No Traveled to Known Affected Are: No History of Present Illness Written by Hayley Laughlin, acting as scribe for Dr. Van on 10/26/17 at 13: 00. 82-year-old female with history of CAD s/p CABG and stents, CHF, CVA/TIA, DM, HTN, HLD, anticoagulated on Coumadin, anxiety, presents with a 3 day history of intractable diarrhea. The patient reports nonbloody watery diarrhea 5x a day over the past 3 days. She denies any fever/chills, abdominal pain, nausea, or vomiting. She has not been eating well since the diarrhea began 3 days ago. Last night her blood sugar dropped to 50 which she attributes to decreased oral intake and diarrhea. She is also on Lantus at home. Denies any recent antibiotic use. Denies any history of Cdiff. Denies any sick contacts or recent travel. Denies any other medical complaints including no chest pain, shortness of breath, or urinary complaints. She is not sure exactly why she is on Coumadin. She is not aware of any history of arrhythmia. Her mailing manager is Dr. Lowe. Since her arrival to the ED, she reports continued episodes of diarrhea overnight and today while in the hospital. She also reports exacerbation of her chronic left shoulder pain after working with physical therapy today. She is requesting tylenol for the pain. She has no other complaints to report at this time. Review of Systems Except as stated in HPI: all other systems reviewed are Neg Past Family Social History Past Medical History CAD s/p CABG and stents CHF CVA/TIA DM HTN HLD anticoagulated on Coumadin anxiety Past Surgical History CABG [id number] Cardiac cath with stent x1 Cholecystectomy Pacer/AICD placement Left eye cataract removal Vaginal abscess I&D Reported Medications Ativan (Lorazepam) 1 Mg Tab 1 Mg PO DIRECTED PRN 1/2 am, 10/04 4:30pm, 1 hs Zocor (Simvastatin) 20 Mg Tab 20 Mg PO HS Uloric (Febuxostat) 40 Mg Tab 40 Mg PO DAILY Inspra (Eplerenone) 50 Mg Tab 50 Mg PO DAILY Furosemide 40 Mg Tab 40 Mg PO SUTUTHSA Take 1 tablet (40mg) daily on Tuesday,Tuesday, and Tuesday Ramipril 2.5 Mg Cap 2.5 Mg PO BID Coumadin (Warfarin) 1 Mg Tab 1.5 Mg PO SUSA Take 1&1/2 tablets (1.5mg) daily on Tuesday and Tuesday Coumadin (Warfarin) 2 Mg Tab 2 Mg PO MOTUWETHFR Take 1 tablet (2mg) daily on Tuesday,Tuesday,Tuesday, and Tuesday Lantus Inj (Insulin Glargine) 1,000 Unit/10 Ml Vial 60 Units SQ DAILY Humalog Inj (Insulin Human Lispro) 1,000 Unit/10 Ml Vial 2-12 Units SQ ACHS SLIDING SCALE Sliding Scale as directed Carvedilol 25 Mg Tab 12.5 Mg PO BID Allergies: Coded Allergies: ciprofloxacin (Unverified Allergy, Severe, Numbness, 10/25/17) diatrizoate meglumine (Unverified Allergy, Severe, Hives, 10/25/17) erythromycin base (Unverified Allergy, Severe, MAKES ME DOOPY, 10/25/17) gadobenic acid (Unverified Allergy, Severe, Hives, 10/25/17) gadodiamide (Unverified Allergy, Severe, Hives, 10/25/17) gadoteridol (Unverified Allergy, Severe, Hives, 10/25/17) iodixanol (Unverified Allergy, Severe, Hives, 10/25/17) iohexol (Unverified Allergy, Severe, Hives, 10/25/17) penicillin G (Unverified Allergy, Severe, RASH, 10/25/17) colchicine (Unverified Allergy, Unknown, 10/25/17) Active Ordered Medications Current Medications Medications (Trade) Dose Ordered Sig/Hillary Route Start Time Stop Time Status Last Admin (NS Flush) 2 ml UNSCH PRN IV FLUSH 10/26/17 00:15 (NS Flush) 2 ml BID IV FLUSH 10/26/17 09:00 10/26/17 09:40 (Tylenol) 650 mg Q4H PRN PO 10/26/17 00:15 (Zofran Inj) 4 mg Q6H PRN IVP 10/26/17 00:15 (Narcan Inj) 0.4 mg UNSCH PRN IV PUSH 10/26/17 00:15 (Coreg) 12.5 mg BID PO 10/26/17 09:00 10/26/17 09:40 (Coumadin) 1.5 mg SuSa PO 10/29/17 16:00 (Coumadin) 2 mg MoTuWeThFr PO 10/26/17 16:00 (Pravachol) 40 mg HS PO 10/26/17 21:00 (D50w (Vial) Inj) 50 ml UNSCH PRN IV PUSH 10/26/17 00:30 (Glucagon Inj) 1 mg UNSCH PRN OTHER 10/26/17 00:30 (NovoLOG SUPPLEMENTAL SCALE) 1 ACHS SLIDING SCALE SQ 10/26/17 08:00 (Lasix) 40 mg SuTuThSa PO 10/27/17 09:00 (Inspra) 50 mg DAILY PO 10/26/17 10:00 10/26/17 09:41 (Coumadin Booklet) 1 ONCE ONCE OTHER 10/26/17 12:15 10/26/17 12:16 UNV Pharmacy Profile Note 0 ml @ 0 mls/hr UNSCH OTHER 10/26/17 12:15 UNV (Coumadin Booklet) 1 ONCE ONCE OTHER 10/26/17 12:15 10/26/17 12:16 UNV (Ativan) 0.5 mg TID PRN PO 10/26/17 12:15 UNV (Tylenol) 650 mg ONCE ONCE PO 10/26/17 13:00 10/26/17 13:01 UNV Family History Family history positive for CA/heart disease Social History Denies any tobacco, alcohol, or illicit drug use Physical Exam Vital Signs Vital Signs Date Time Temp Pulse Resp B/P (MAP) Pulse Ox O2 Delivery O2 Flow Rate FiO2 10/26/17 11:35 94 145/61 (89) 10/26/17 09:00 88 205/76 (119) 10/26/17 07:48 98.4 96 144/65 (91) 98 Nasal Cannula 2.00 10/26/17 05:49 64 16 136/61 (86) 100 Nasal Cannula 2.00 10/26/17 01:39 67 20 112/65 (81) 99 Room Air 10/26/17 00:05 78 16 133/67 (89) 99 Room Air 10/25/17 23:05 74 20 133/67 (89) 98 Room Air 10/25/17 19:34 64 18 126/58 (80) 97 Nasal Cannula 2.00 10/25/17 19:32 97 Nasal Cannula 2.00 10/25/17 18:54 98.1 79 23 128/89 (102) 95 Room Air 10/25/17 18:50 87 28 96 Physical Exam GENERAL: Well-nourished, well-developed elderly female patient in [facility]. SKIN: Warm and dry. No rash. HEAD: Normocephalic. Atraumatic. EYES: Pupils equal and round. No scleral icterus. No injection or drainage. ENT: No nasal bleeding or discharge. Mucous membranes pink and moist. NECK: Supple. Trachea midline. CARDIOVASCULAR: Regular rate and rhythm. S1, S2 noted. No murmur appreciated. RESPIRATORY: No accessory muscle use. Decreased breath sounds, otherwise clear to auscultation. Breath sounds equal bilaterally. GASTROINTESTINAL: Abdomen soft, non-tender, nondistended. Normoactive bowel sounds x4. MUSCULOSKELETAL: No obvious deformities. 1+ BLE edema. Left anterior shoulder mildly tender to palpation, decreased active ROM, full passive ROM. NEUROLOGICAL: Awake and alert. No obvious cranial nerve deficits. Motor grossly within normal limits. Normal speech. PSYCHIATRIC: Slightly anxious mood; insight and judgment normal. Laboratory Laboratory Tests Test 10/25/17 19:00 10/25/17 21:00 10/26/17 00:30 10/26/17 10:26 White Blood Count 5.4 4.9 Red Blood Count 4.22 3.92 Hemoglobin 12.2 11.4 Hematocrit 37.1 34.6 Mean Corpuscular Volume 87.9 88.2 Mean Corpuscular Hemoglobin 28.9 29.2 Mean Corpuscular Hemoglobin Concent 32.9 33.1 Red Cell Distribution Width 13.8 13.7 Platelet Count 180 192 Mean Platelet Volume 8.6 8.7 Neutrophils (%) (Auto) 83.6 78.3 Lymphocytes (%) (Auto) 9.6 11.6 Monocytes (%) (Auto) 5.8 9.9 Eosinophils (%) (Auto) 0.5 0.0 Basophils (%) (Auto) 0.5 0.2 Neutrophils # (Auto) 4.5 3.8 Lymphocytes # (Auto) 0.5 0.6 Monocytes # (Auto) 0.3 0.5 Eosinophils # (Auto) 0.0 0.0 Basophils # (Auto) 0.0 0.0 CBC Comment AUTO DIFF DIFF FINAL Differential Comment AUTO DIFF CONFIRMED Platelet Estimate NORMAL Platelet Morphology Comment NORMAL Basophilic Stippling FAINT Prothrombin Time 28.2 34.1 Prothromb Time International Ratio 2.8 3.4 Activated Partial Thromboplast Time 32.5 Blood Urea Nitrogen 69 70 Creatinine 2.04 1.92 Random Glucose 77 215 Total Protein 7.6 Albumin 2.8 Calcium Level 8.4 8.6 Alkaline Phosphatase 98 Aspartate Amino Transf (AST/SGOT) 32 Alanine Aminotransferase (ALT/SGPT) 37 Total Bilirubin 0.5 Sodium Level 134 133 Potassium Level 4.1 4.3 Chloride Level 103 101 Carbon Dioxide Level 20.5 22.7 Anion Gap 11 9 Estimat Glomerular Filtration Rate 23 25 Lipase 91 Urine Color YELLOW Urine Turbidity CLEAR Urine pH 5.5 Urine Specific [place] 1.017 Urine Protein TRACE Urine Glucose (UA) NEG Urine Ketones NEG Urine Occult Blood SMALL Urine Nitrite NEG Urine Bilirubin NEG Urine Urobilinogen 2.0 Urine Leukocyte Esterase NEG Urine RBC 1 Urine WBC 10 Urine Transitional Epithelial Cells <1 Urine Renal Epithelial Cells <1 Urine Mucus FEW Microscopic Urinalysis Comment CULTURE INDICATED Stool C. difficile Toxin (PCR) NEGATIVE Stl C. difficile Toxin Epiderm 027 PRESUMPTIVE NEGATIVE Date/Time Source Procedure Growth Status 10/25/17 21:00 Stool Stool Cryptosporidium Exam Pending Received 10/25/17 21:00 Stool Stool Giardia Antigen (FABIAN) Pending Received 10/25/17 21:00 Urine Random Urine Urine Culture Pending Received Result Diagram: 10/26/17 1026 10/26/17 1026 Caprini VTE Risk Assessment Caprini VTE Risk Assessment: Mod/High Risk (score >= 2) Caprini Risk Assessment Model Point Value = 1 Point Value = 2 Point Value = 3 Point Value = 5 Age 41-60 Minor surgery BMI > 25 kg/m2 Swollen legs Varicose veins or History of unexplained or recurrent spontaneous Oral contraceptives or hormone replacement Sepsis (< 1 month) Serious lung disease, including pneumonia (< 1 month) Abnormal pulmonary function Acute myocardial infarction Congestive heart failure (< 1 month) History of inflammatory bowel disease Medical patient at bed rest Age 61-74 Arthroscopic surgery Major open surgery (> 45 min) Laparoscopic surgery (> 45 min) Malignancy Confined to bed (> 72 hours) Immobilizing plaster cast Central venous access Age >= 75 History of VTE Family history of VTE Factor V Leiden Prothrombin [id number] Lupus anticoagulant Anticardiolipin antibodies Elevated serum homocysteine Heparin-induced thrombocytopenia Other congenital or acquired thrombophilia Stroke (< 1 month) Elective arthroplasty Hip, pelvis, or leg fracture Acute spinal cord injury (< 1 month) Prophylaxis Regimen Total Risk Factor Score Risk Level Prophylaxis Regimen 0-1 Low Early ambulation 2 Moderate Order ONE of the following: *Sequential Compression Device (SCD) *Heparin 5000 units SQ BID 3-4 Higher Order ONE of the following medications: *Heparin 5000 units SQ TID *Enoxaparin/Lovenox 40 mg SQ daily (WT < 150 kg, CrCl > 30 mL/min) *Enoxaparin/Lovenox 30 mg SQ daily (WT < 150 kg, CrCl > 10-29 mL/min) *Enoxaparin/Lovenox 30 mg SQ BID (WT < 150 kg, CrCl > 30 mL/min) AND/OR *Sequential Compression Device (SCD) 5 or more Highest Order ONE of the following medications: *Heparin 5000 units SQ TID (Preferred with Epidurals) *Enoxaparin/Lovenox 40 mg SQ daily (WT < 150 kg, CrCl > 30 mL/min) *Enoxaparin/Lovenox 30 mg SQ daily (WT < 150 kg, CrCl > 10-29 mL/min) *Enoxaparin/Lovenox 30 mg SQ BID (WT < 150 kg, CrCl > 30 mL/min) AND *Sequential Compression Device (SCD) Assessment and Plan Problem List: (1) Diarrhea ICD Code: R19.7 - Diarrhea, unspecified (2) Gastroenteritis ICD Code: K52.9 - Noninfective gastroenteritis and colitis, unspecified (3) Acute renal insufficiency ICD Code: N28.9 - Acute renal insufficiency Status: Acute Assessment and Plan 82-year-old female with history of CAD s/p CABG and stents, CHF, CVA/TIA, DM, HTN, HLD, anticoagulated on Coumadin, anxiety, presents with a 3 day history of intractable diarrhea. Diarrhea: suspect secondary to viral gastroenteritis. No abdominal pain, nausea , or vomiting. Afebrile, no leukocytosis. -C.diff negative -Stool studies pending negative to date -Supportive treatment with IVF, antiemetics, pain control prn -Give gentle IVF hydration with NS at 42cc/hr x1L (caution with CHF) -Monitor for improvement JUAN on CKD stage III: Cr 2.04, previously 1.62 on 09/02/17. Suspect secondary to dehydration from diarrhea. -Giving gentle IVF as above -Avoid nephrotoxins -Holding lasix and NINO -Monitor BMP CHF, CAD s/p CABG, HTN, HLD: chronic, stable -continue patient's home medications with statin, coreg -holding ramipril and lasix with JUAN -caution with IVF Diabetes Mellitus: with episode of hypoglycemia with BG 50 prior to arrival, secondary to decreased oral intake and long acting insulin -BG now over 200 -will restart lantus at half her normal dosing (patient takes 60u at home, will give 30u for now) -Monitor accu-checks and cover with SSI -diabetic diet Supratherapeutic INR: unclear why patient is on Coumadin, she reports it is for her heart, also has history of stroke. -INR 3.4, hold Coumadin today -Monitor daily PT/INR -Pharmacy consult Left Shoulder Pain: acute on chronic, after working with PT today in hospital -give Tylenol prn pain -PT to eval/treat Anxiety: acute on chronic, patient anxious in ER -continue patient's ativan 0.5mg po tid prn anxiety DVT Prophylaxis: on Coumadin with supratherapeutic INR All other chronic medical conditions stable, continue home medications as appropriate. This note was transcribed by sunshine Laughlin. I, Dr. Jluis Van personally performed the history, physical exam, and medical decision making; and confirmed the accuracy of the information in the transcribed note. Authenticated by Dr. Jluis Van on 10/26/17 at 13:06. Code Status Full Code Discussed Condition With Patient, Hayley Verma PA-C Oct 26, 2017 13:04 Jluis Van MD Oct 26, 2017 13:06
[2017-10-26] MEDS: ACETAMINOPHEN 325 MG TAB PO PRN ×3 (13:20→23:10)
[2017-10-26] MEDS ORDERED: ACETAMINOPHEN 325 MG TAB PO ONE (14:00)
[2017-10-26] MEDS ORDERED: INSULIN DETEMIR 100 UNITS/ML VIAL SQ SCH (14:00)
[2017-10-26] MEDS: SODIUM CHLOR 0.9% 1000 ML INJ 1,000 ML IV SCH (14:24)
[2017-10-26] MEDS: LORazepam 0.5 MG TAB PO PRN ×2 (14:46→23:10)
[2017-10-26] MEDS ORDERED: WARFARIN SOD 2 MG TAB PO SCH (16:00)
[2017-10-26] MEDS ORDERED: traMADol HCL 50 MG TAB PO PRN (19:45)
[2017-10-26] MEDS: PRAVASTATIN SOD 20 MG TAB PO SCH (20:43)
[2017-10-27] VITALS (7 sets, daily range): BP systolic 101–141; BP diastolic 51–62; PULSE 85–96; RESP 17–20; TEMP 98.1–99.8; O2SAT 96–100
[2017-10-27] MEDS ORDERED: FUROSEMIDE 40 MG TAB PO SCH ×2 (00:30→09:00)
[2017-10-27 00:56] LABS: INTERNATIONAL NORMALIZED RATIO 3.5 RATIO; PROTHROMBIN TIME - PATIENT 35.2 SEC (9.8-11.6)
[2017-10-27] MEDS: ACETAMINOPHEN 325 MG TAB PO PRN (03:34)
[2017-10-27 05:23] LABS: BASOPHIL % 0.2 % (0.0-2.0); HEMATOCRIT 32.5 % (35.0-46.0); INTERNATIONAL NORMALIZED RATIO 3.4 RATIO; LYMPH % 4.6 % (9.0-44.0); LYMPHOCYTE # 0.4 TH/MM3 (1.0-4.8); MEAN CORPUSCULAR HEMOGLOBIN 29.4 PG (27.0-34.0); MEAN CORPUSCULAR HGB CONC 33.8 % (32.0-36.0); MEAN PLATELET VOLUME 8.4 FL (7.0-11.0); MONOCYTE # 0.6 TH/MM3 (0-0.9); NEUT % 88.2 % (16.0-70.0); PLATELET COUNT 212 TH/MM3 (150-450); PROTHROMBIN TIME - PATIENT 34.1 SEC (9.8-11.6); RED BLOOD COUNT 3.74 MIL/MM3 (4.00-5.30); RED CELL DISTRIBUTION WIDTH 13.9 % (11.6-17.2)
[2017-10-27 05:57] LABS: ALBUMIN 2.6 GM/DL (3.4-5.0); ALKALINE PHOSPHATASE 99 U/L (45-117); ALT (GPT) 30 U/L (10-53); AST (GOT) 21 U/L (15-37); BICARBONATE 23.1 MEQ/L (21.0-32.0); BLOOD UREA NITROGEN 72 MG/DL (7-18); CALCIUM 8.3 MG/DL (8.5-10.1); CHLORIDE 105 MEQ/L (98-107); CREATININE 2.26 MG/DL (0.50-1.00); GLOMERULAR FILTRATION RATE 21 ML/MIN (>89); GLUCOSE,RANDOM 79 MG/DL (74-106); SODIUM (NA) 136 MEQ/L (136-145); TOTAL BILIRUBIN ADULT 0.6 MG/DL (0.2-1.0); TOTAL PROTEIN 7.3 GM/DL (6.4-8.2)
[2017-10-27] MEDS: INSULIN ASPART SUPPLEMENTAL SCALE SQ SCH ×3 (08:00→17:00)
[2017-10-27] MEDS ORDERED: METHOCARBAMOL 500 MG TAB PO PRN (09:00)
[2017-10-27] MEDS ORDERED: traMADol HCL 50 MG TAB PO PRN (09:00)
[2017-10-27] MEDS ORDERED: ACETAMINOPHEN 325 MG TAB PO PRN (09:00)
[2017-10-27] MEDS: LACTOBACILLUS ACIDOPHILUS TAB PO SCH ×3 (09:28→17:01)
[2017-10-27] MEDS: CARVEDILOL 12.5 MG TAB PO SCH (09:28)
[2017-10-27] MEDS: traMADol HCL 50 MG TAB PO PRN (09:29)
[2017-10-27] MEDS: EPLERENONE 25 MG TAB PO SCH (09:29)
[2017-10-27] MEDS: SODIUM CHLORIDE 0.9% FLUSH 10 ML FLUSH IV FLUSH SCH ×2 (09:30→21:00)
[2017-10-27] MEDS: LORazepam 0.5 MG TAB PO PRN (09:30)
--- NOTE | 2017-10-27 11:10 | HHI.PR ---
Subjective Remarks Follow-up diarrhea. Continues to have loose stools denies nausea, vomiting and abdominal pain. Did not receive IV fluid overnight. No shortness of breath. Continues to have left shoulder pain which is chronic but worsened after physical therapy yesterday. Objective Vitals Vital Signs Date Time Temp Pulse Resp B/P (MAP) Pulse Ox O2 Delivery O2 Flow Rate FiO2 10/27/17 07:28 98.2 86 18 115/54 (74) 99 10/27/17 05:14 90 10/27/17 04:34 15 10/27/17 04:07 98.9 93 18 101/51 (68) 96 10/27/17 00:00 90 10/26/17 23:06 98.8 82 18 114/54 (74) 99 10/26/17 21:42 14 10/26/17 20:15 92 10/26/17 17:00 98.2 82 18 146/63 (90) 98 10/26/17 14:57 92 10/26/17 13:55 10/26/17 13:30 99.6 98 18 132/62 (85) 99 10/26/17 11:35 94 145/61 (89) I/O 10/26/17 10/26/17 10/26/17 10/27/17 10/27/17 10/27/17 07:00 15:00 23:00 07:00 15:00 23:00 # Voids 2 Result Diagram: 10/27/17 0426 10/27/17 0426 Objective Remarks GENERAL: Well-nourished, well-developed elderly female patient in [facility]. SKIN: Warm and dry. No rash. CARDIOVASCULAR: Regular rate and rhythm. S1, S2 noted. No murmur appreciated. RESPIRATORY: No accessory muscle use. Decreased breath sounds, otherwise clear to auscultation. Breath sounds equal bilaterally. GASTROINTESTINAL: Abdomen soft, non-tender, nondistended. Normoactive bowel sounds x4. MUSCULOSKELETAL: No obvious deformities. 1+ BLE edema. Left anterior shoulder mildly tender to palpation, decreased active ROM, full passive ROM. NEUROLOGICAL: Awake and alert. No obvious cranial nerve deficits. Motor grossly within normal limits. Normal speech. PSYCHIATRIC: Slightly anxious mood; insight and judgment normal. Procedures none A/P Problem List: (1) Diarrhea ICD Code: R19.7 - Diarrhea, unspecified (2) Gastroenteritis ICD Code: K52.9 - Noninfective gastroenteritis and colitis, unspecified (3) Acute renal insufficiency ICD Code: N28.9 - Acute renal insufficiency Status: Acute Assessment and Plan 82-year-old female with history of CAD s/p CABG and stents, CHF, CVA/TIA, DM, HTN, HLD, anticoagulated on Coumadin, anxiety, presents with a 3 day history of intractable diarrhea. Diarrhea: suspect secondary to viral gastroenteritis. No abdominal pain, nausea , or vomiting. Afebrile, no leukocytosis. Continues to have diarrhea we'll add Lactinex and Lomotil -C.diff negative -Stool studies pending negative to date -Supportive treatment with IVF, antiemetics, pain control prn -Give gentle IVF hydration with NS at 42cc/hr x1L (caution with CHF) -Monitor for improvement JUAN on CKD stage III: Cr 2.04, previously 1.62 on 09/02/17. Suspect secondary to dehydration from diarrhea. Worse because of continued diarrhea and patient not receiving IV fluid. Nonoliguric -Giving gentle IVF as above -Avoid nephrotoxins -Holding lasix and NINO -Monitor BMP CHF, CAD s/p CABG, HTN, HLD: chronic, stable -continue patient's home medications with statin, coreg -holding ramipril and lasix with JUAN -caution with IVF Diabetes Mellitus: with episode of hypoglycemia with BG 50 prior to arrival, secondary to decreased oral intake and long acting insulin -Hyperglycemic yesterday then again hypoglycemic this am -will decrease Lantus to 26 units at bedtime. Hypoglycemia protocol -Monitor accu-checks and cover with SSI -diabetic diet Supratherapeutic INR: unclear why patient is on Coumadin, she reports it is for her heart, also has history of stroke. -Continue to hold Coumadin -Monitor daily PT/INR -Pharmacy consult Left Shoulder Pain: acute on chronic, after working with PT today in hospital -give Tylenol and tramadol prn pain. Warm compresses -PT to eval/treat Anxiety: acute on chronic, patient anxious in ER -continue patient's ativan 0.5mg po tid prn anxiety DVT Prophylaxis: on Coumadin with supratherapeutic INR All other chronic medical conditions stable, continue home medications as appropriate. Discharge Planning Not ready for discharge with ongoing diarrhea and dehydration Jluis Van MD Oct 27, 2017 11:10
[2017-10-27] MEDS ORDERED: DIPHENOXYLATE/ATROPINE 2.5 MG/0.025 MG TAB PO PRN (13:00)
[2017-10-27] MEDS: SODIUM CHLOR 0.9% 1000 ML INJ 1,000 ML IV SCH (13:49)
[2017-10-27] MEDS: INSULIN DETEMIR 100 UNITS/ML VIAL SQ SCH (14:00)
[2017-10-27] MEDS: DIPHENOXYLATE/ATROPINE 2.5 MG/0.025 MG TAB PO SCH ×2 (15:08→17:01)
[2017-10-28] VITALS (16 sets, daily range): BP systolic 92–127; BP diastolic 51–58; PULSE 73–108; RESP 16–22; TEMP 97.5–99.6; O2SAT 96–99
[2017-10-28] MEDS: CARVEDILOL 12.5 MG TAB PO SCH ×3 (00:15→21:47)
[2017-10-28] MEDS: PRAVASTATIN SOD 20 MG TAB PO SCH ×2 (00:15→21:47)
[2017-10-28] MEDS: INSULIN ASPART SUPPLEMENTAL SCALE SQ SCH ×5 (00:16→21:48)
[2017-10-28] MEDS: DIPHENOXYLATE/ATROPINE 2.5 MG/0.025 MG TAB PO SCH ×3 (00:16→12:36)
[2017-10-28 05:14] LABS: BICARBONATE 21.6 MEQ/L (21.0-32.0); CALCIUM 7.9 MG/DL (8.5-10.1); CREATININE 2.66 MG/DL (0.50-1.00); MAGNESIUM 1.9 MG/DL (1.5-2.5)
[2017-10-28] MEDS ORDERED: SODIUM CHLORID 0.9% 500 ML INJ 500 ML IV ONE (07:00)
[2017-10-28] MEDS: ONDANSETRON HCL 4 MG/2 ML VIAL IVP PRN (07:12)
--- NOTE | 2017-10-28 08:20 | EKG ---
Date Performed: 10/28/2017 Time Performed: 06:52:29 PTAGE: 82 years EKG: ATRIAL FIBRILLATION WITH RAPID VENTRICULAR RESPONSE POSSIBLE ANTERIOR MYOCARDIAL INFARCTION INFERIOR MYOCARDIAL INFARCTION ABNORMAL ECG NO PREVIOUS TRACING DOCTOR: Tony Pablo Interpretating Date/Time 10/28/2017 08:18:32
[2017-10-28] MEDS ORDERED: RESP: RACEPINEPHRINE 2.25% 0.5 ML NEB NEB PRN (09:00)
--- NOTE | 2017-10-28 09:59 | RADRPT ---
EXAM DATE/TIME: 10/28/2017 09:35 [place] COMPARISON: No previous studies available for comparison. INDICATIONS : Left shoulder pain with no recent injury. MEDICAL HISTORY : Myocardial infarction. Congestive heart failure. Hypercholesterolemia. Taylor's palsy. tia.cad. hyp ertension. arthritis. diabetic. SURGICAL HISTORY : Cholecystectomy. Pacemaker. CABG. Cardiac stent. ENCOUNTER: Initial ACUITY: 1 week PAIN SCORE: 9/10 LOCATION: Left shoulder FINDINGS: Pacer on the left. Degenerative changes AC joint. Anatomic alignment. No fracture. CONCLUSION: Degenerative changes. No fracture. Jalen Campbell MD FACR on October 28, 2017 at 9:56 Board Certified Radiologist. This report was verified electronically.
[2017-10-28 10:34] LABS: TROPONIN I 0.04 NG/ML (0.02-0.05)
--- NOTE | 2017-10-28 11:15 | HHI.PR ---
Subjective Remarks Follow-up acute kidney injury. Continues to poor oral intake. No diarrhea overnight. This morning had an episode of being unresponsive for about 10 seconds. RN reports that her head was shaking. Systolic blood pressure 92. Fingersticks within normal limits. Recent doesn't recall the events. She complains of left shoulder pain, nausea, dry heaves denies chest pain, shortness of breath and abdominal pain. Case discussed with nursing staff and cardiology. Pacer interrogation unremarkable. Objective Vitals Vital Signs Date Time Temp Pulse Resp B/P (MAP) Pulse Ox O2 Delivery O2 Flow Rate FiO2 10/28/17 09:17 91 100/58 (72) 96 10/28/17 09:10 98.4 86 16 115/58 (77) 96 10/28/17 09:00 98.3 84 16 101/53 (69) 96 10/28/17 08:04 99.6 10/28/17 07:32 97.7 92 19 113/58 (76) 97 10/28/17 06:44 97.5 10/28/17 06:42 107 92/51 (65) 97 10/28/17 04:00 98.5 90 22 100/54 (69) 99 10/28/17 00:05 101 10/28/17 00:00 98.9 103 22 120/57 (78) 98 10/27/17 21:39 99.6 96 17 123/58 (79) 97 10/27/17 16:31 99.8 93 20 141/62 (88) 100 10/27/17 12:31 98.1 85 20 119/55 (76) 100 I/O 10/27/17 10/27/17 10/27/17 10/28/17 10/28/17 10/28/17 07:00 15:00 23:00 07:00 15:00 23:00 Intake Total 500 ml Output Total 300 ml Balance 500 ml -300 ml Intake Oral 500 ml Output Urine Total 300 ml # Voids 1 # Bowel Movements 1 0 Result Diagram: 10/27/17 0426 10/28/17 0412 Imaging Last Impressions Shoulder X-Ray 10/28/17 0000 Signed Impressions: Service Date/Time: Saturday, October 28, 2017 09:35 - CONCLUSION: Degenerative changes. No fracture. Jalen Campbell MD FACR Objective Remarks GENERAL: Well-nourished, well-developed elderly female patient in [facility]. SKIN: Warm and dry. No rash. CARDIOVASCULAR: Regular rate and rhythm. S1, S2 noted. No murmur appreciated. RESPIRATORY: No accessory muscle use. Decreased breath sounds, otherwise clear to auscultation. Breath sounds equal bilaterally. GASTROINTESTINAL: Abdomen soft, non-tender, nondistended. Normoactive bowel sounds x4. MUSCULOSKELETAL: No obvious deformities. 1+ BLE edema. Left anterior shoulder mildly tender to palpation, decreased active ROM, full passive ROM. NEUROLOGICAL: Awake and alert. No obvious cranial nerve deficits. Motor grossly within normal limits. Normal speech. PSYCHIATRIC: Slightly anxious mood; insight and judgment normal. Procedures none A/P Problem List: (1) Diarrhea ICD Code: R19.7 - Diarrhea, unspecified (2) Gastroenteritis ICD Code: K52.9 - Noninfective gastroenteritis and colitis, unspecified (3) Acute renal insufficiency ICD Code: N28.9 - Acute renal insufficiency Status: Acute Assessment and Plan 82-year-old female with history of CAD s/p CABG and stents, CHF, CVA/TIA, DM, HTN, HLD, anticoagulated on Coumadin, anxiety, presents with a 3 day history of intractable diarrhea. Diarrhea: suspect secondary to viral gastroenteritis. No abdominal pain, nausea , or vomiting. Afebrile, no leukocytosis. Improved diarrhea on Lactinex and Lomotil -C.diff negative -Stool studies pending negative to date -Supportive treatment with IVF, antiemetics, pain control prn -Give gentle IVF hydration with NS(caution with CHF) -Monitor for improvement JUAN on CKD stage III: Cr 2.04, previously 1.62 on 09/02/17. Suspect secondary to dehydration from diarrhea. Worse because of decreased oral intake and patient not receiving IV fluid. Nonoliguric -Giving gentle IVF as above, increase to 60 cc an hour -Avoid nephrotoxins -Holding lasix and NINO -Monitor BMP Brief syncope likely from hypotension. RN reports that her head was shaking. Systolic blood pressure 92 received 500 cc bolus. Fingersticks within normal limits. Recent doesn't recall the events. Pacer interrogation unremarkable. Trend cardiac enzymes and check EEG dw cards CHF, CAD s/p CABG, HTN, HLD: chronic, stable -continue patient's home medications with statin, coreg -holding ramipril and lasix with JUAN -caution with IVF Diabetes Mellitus: with episode of hypoglycemia with BG 50 prior to arrival, secondary to decreased oral intake and long acting insulin -Improved hyperglycemia ct Lantus 26 units at bedtime. Hypoglycemia protocol -Monitor accu-checks and cover with SSI -diabetic diet Supratherapeutic INR: unclear why patient is on Coumadin, she reports it is for her heart, also has history of stroke. -Continue to hold Coumadin -Monitor daily PT/INR -Pharmacy consult Left Shoulder Pain: acute on chronic, after working with PT today in hospital -give Tylenol and tramadol prn pain. Warm compresses -PT to eval/treat Anxiety: acute on chronic, patient anxious in ER -continue patient's ativan 0.5mg po tid prn anxiety DVT Prophylaxis: on Coumadin with supratherapeutic INR All other chronic medical conditions stable, continue home medications as appropriate. Discharge Planning Not ready for discharge with worsening renal dysfunction Jluis Van MD Oct 28, 2017 11:15
[2017-10-28] MEDS: SODIUM CHLORIDE 0.9% FLUSH 10 ML FLUSH IV FLUSH SCH ×2 (12:06→21:00)
[2017-10-28] MEDS: SODIUM CHLOR 0.9% 1000 ML INJ 1,000 ML IV SCH (12:28)
[2017-10-28] MEDS: EPLERENONE 25 MG TAB PO SCH (12:32)
[2017-10-28] MEDS: LACTOBACILLUS ACIDOPHILUS TAB PO SCH ×3 (12:36→17:45)
[2017-10-28] MEDS: INSULIN DETEMIR 100 UNITS/ML VIAL SQ SCH (14:01)
--- NOTE | 2017-10-28 14:01 | MB ---
cc: SHAHZAD MIRELES M.D., JAVIER M.D. ABANDO, JOSE R. MD DATE OF CONSULTATION 10/28/[address] Van. REASON FOR CONSULTATION Syncope. HISTORY OF PRESENT ILLNESS Ms. Sramiento is an 82-year-old white female well-known to me with history of ASHD and ischemic cardiomyopathy, chronic systolic congestive heart failure, who presented to the emergency room on October 25, initially with complaints of generalized weakness and persistent diarrhea. She said that had been going on three days prior to the initial admission. She continues to have intermittent diarrhea, she says whenever she eats anything. She denies any abdominal pain. She has had some left shoulder pain but that has been chronic and appears to be orthopedic in nature. An x-ray did not show any fracture here. She did not have any falls. While here she was found somewhat unresponsive and was felt to have had a syncopal episode. The patient does not recall any of this. She was ultimately arousable. She has had some episodes of moderate hypoglycemia, although during that episode her pressure I am told by the nursing staff was in the 90s and her blood sugar was not low. She is just finishing up and EEG. She is awake and alert but she was asleep when I came in the room and she was somewhat difficult to arouse and she is [id number]. She has been taking her medications as directed at home. She has not been eating or drinking well over the past week. PAST MEDICAL HISTORY 1. ASHD. 2. Ischemic cardiomyopathy; most recent left ventricular ejection fraction by nuclear stress testing back in June was 45%. 3. History of remote inferior infarct. 4. Chronic lower extremity edema. 5. Obesity. 6. Sleep apnea syndrome. 7. TIA, maintained on long-term anticoagulation therapy. 8. Anxiety disorder. PAST SURGICAL HISTORY 1. Cardiac catheterization with prior bare metal stent implant to the posterior lateral circumflex artery 05/28/2010. 2. Status post CABG x4 vessels with one remaining patent graft, left internal mammary graft to LAD, documented by most recent cardiac catheterization December 02, 2011. 3. Remote cholecystectomy. 4. Implantable cardioverter defibrillator. 5. Left eye cataract removed. 6. Vaginal abscess I&D. ALLERGIES 1. ALDACTONE CAUSES NAUSEA. 2. INTRAVENOUS CONTRAST. 3. PENICILLIN. 4. EES. 5. INTOLERANCE TO DIGOXIN. 6. CIPRO. 7. ZAROXOLYN. 8. ALLOPURINOL. MEDICATIONS Medications prior to admission: 1. Carvedilol 12.5 mg p.o. b.i.d. 2. Altace 2.5 mg b.i.d. 3. Lasix 40 mg daily. 4. Inspra 50 mg daily. 5. Zocor 20 mg daily. 6. Warfarin, most recently 2 mg Mondays and Wednesdays with 1.5 mg the rest of the week, to maintain an INR between 2.5 and 3 seconds. 7. Sublingual nitroglycerin p.r.n. 8. Uloric 40 mg daily. 9. Lantus insulin 60 units daily. 10.Humalog t.i.d. with sliding scale. 11.Ativan 1 mg p.r.n. She is currently on the following medications here in the hospital: 1. Warfarin 1.5 mg Tuesday and Tuesday with 2 mg Tuesday, Tuesday, Tuesday, , Tuesday. 2. Pravastatin 40 mg daily. 3. Robaxin 500 mg q.8h. p.r.n. 4. Ultram 100 mg q.4h. p.r.n. 5. Tylenol 650 mg q.6h. p.r.n. 6. Levemir insulin 26 units q.24h. 7. Racemic epinephrine nebulizers q.4h. p.r.n. 8. Eplerenone 50 mg p.o. daily. 9. Carvedilol 12.5 mg b.i.d. 10.Novolog insulin sliding scale. Her furosemide is currently on hold and she is also receiving some intravenous fluids, sodium chloride at 60 mL per hour. FAMILY HISTORY Noncontributory. SOCIAL HISTORY The patient denies tobacco, alcohol or illicit drug use. REVIEW OF SYSTEMS Has intermittent lower extremity edema. Denies any nausea or vomiting but has had protracted diarrhea for the past 5 days. She denies any bloody stools. She denies actually any syncope or lightheadedness episodes. She has had a poor appetite and food and water intake. She denies bleeding or clotting disorders. Except for that mentioned in the HPI her complete 12-point review of systems is otherwise negative. PHYSICAL EXAMINATION GENERAL: An elderly obese white female lying in bed, anxious but in no distress at this time. VITAL SIGNS: Blood pressure 100/58 mmHg, heart rate 91 and regular, respiratory rate 16, temperature 98.4, oxygen saturation 96% on room air. HEENT: Head is normocephalic and atraumatic. Pupils equal, round and react to light. Sclera anicteric. Extraocular movements intact. NECK: The neck is supple. There is no adenopathy. No jugular venous distension at 45 degrees. Carotid upstrokes are normal. No bruits. LUNGS: Clear. HEART: PMI is not displaced. S1, S2 are normal. There is grade 1/6 systolic murmur at the base. No diastolic murmur, gallops or rubs. ABDOMEN: Obese. Bowel sounds present. Soft, nontender. No hepatosplenomegaly, masses or bruits. EXTREMITIES: No cyanosis or clubbing. There is trace to +1 pretibial pitting edema bilaterally. Perfusion is adequate in the upper and lower extremities. There are no femoral bruits. NEUROLOGIC: Exam is nonfocal except the patient is [id number]. EKG EKG in the emergency room from this morning at 6:52 shows a lot of baseline artifact. It appears to be likely sinus rhythm based upon her previous EKGs with very small P-waves, although these are hard to discern and atrial fibrillation cannot be excluded. There are PACs and wandering baseline and old inferior infarct is seen. There is some mild ST elevation in inferior leads seen. Comparing this EKG to an EKG from my office on June 15, 2017 there is probably no significant change. ICD INTERROGATION Her ICD was interrogated today and shows a normally functioning device without recent therapies or arrhythmias. TELEMETRY Her court recording monitor shows sinus rhythm. An echocardiogram performed in my office April 11, 2017 showed moderate concentric LVH. Estimated ejection fraction 30-35%. Dilated right ventricle. Left atrial enlargement. Aortic sclerosis. Mitral annular calcification. Right ventricular systolic pressure elevated at 54 mmHg. A pharmacologic stress test myocardial perfusion imaging study performed June 21, 2017 in my office showed improved left ventricular function with an ejection fraction of 45-50% with basilar to mid inferior akinesis. There was a transmural inferior wall infarct with a nontransmural infarct of the anterolateral wall and lateral apex but no ischemia. IMAGING X-ray of the left shoulder shows no fracture. There is no chest x-ray ordered. LABORATORY On October 25, 2017 her white count 5.4, hemoglobin 12.2, platelet count 180,000. CBC on October 27 shows a white count of 8.0, hemoglobin 11.0, platelet count 212,000. INR from yesterday was 3.4. Chemistries from this morning: Sodium 130, potassium 4.6, chloride 99, CO2 21.6, BUN 84, creatinine 2.66, up from October 25 on admission when her BUN was 69 and her creatinine was 2.04. Total CPK from this morning 73. Troponin-I 0.04. Urinalysis shows small occult blood, 10 white blood cells. A culture is pending. Nasal screen MRSA is not detected. Stool for C. diff toxin presumptive negative thus far. IMPRESSION 1. Reported unresponsive episode of uncertain etiology. 2. Refractory diarrhea with dehydration. 3. ASHD with ischemic cardiomyopathy and mild left ventricular dysfunction, currently compensated. 4. Chronic systolic congestive heart failure. 5. Status post CABG x4 vessels on April 11, 2006 with one remaining patent graft, left internal mammary graft to LAD, doing well on medical therapy. 6. Status post dual-chamber ICD implant, functioning normally on interrogation today. No arrhythmias or therapies. 7. History of a bare metal stent implant posterolateral circumflex in 2009. 8. Pulmonary hypertension. 9. Chronic lower extremity edema. 10.Sleep apnea syndrome. 11.Obesity. RECOMMENDATIONS She is also undergoing neurologic work-up and an EEG was just completed to rule out possible seizure activity. From the information I obtained from the nursing staff and Dr. Van I suspect her symptoms may have been related to hypotension or possibly the patient is just difficult to arouse from sleep due to her poor hearing acuity. In any case she is dehydrated and needs continued judicious intravenous fluid hydration. Be careful to avoid fluid volume overload. Hold off on her Lasix for now until she is taking adequate p.o. food and liquids and her diarrhea has resolved and she is euvolemic. Maintain electrolyte balance. I have no additional inpatient cardiovascular testing that is necessary at this time. Once her diarrhea is resolved and her neurologic work-up is completed she may be discharged from my standpoint. She already has a follow-up appointment arranged in the office. I discussed the case in detail with the patient and Dr. Van. Dr. Martinez will be covering me over the weekend. Please call him if needed. Thank you for allowing me to participate in the care of this patient. MD ADENIKE Wilks/KAREN /11:10 AM /1:25 PM
[2017-10-28 15:43] LABS: TROPONIN I 0.03 NG/ML (0.02-0.05)
[2017-10-28 17:22] LABS: TROPONIN I 0.02 NG/ML (0.02-0.05)
[2017-10-28] MEDS: traMADol HCL 50 MG TAB PO PRN ×2 (17:46→23:04)
[2017-10-28] MEDS: LORazepam 0.5 MG TAB PO PRN (17:46)
[2017-10-28 22:00] LABS: INTERNATIONAL NORMALIZED RATIO 4.8 RATIO; PROTHROMBIN TIME - PATIENT 48.1 SEC (9.8-11.6)
[2017-10-29] VITALS (40 sets, daily range): BP systolic 99–119; BP diastolic 51–80; PULSE 72–113; RESP 13–37; TEMP 97.7–99.4; O2SAT 95–100
[2017-10-29] MEDS: ONDANSETRON HCL 4 MG/2 ML VIAL IVP PRN (00:27)
[2017-10-29 01:46] LABS: AUTOMATED NEUTROPHIL # 6.1 TH/MM3 (1.8-7.7); BASOPHIL % 0.1 % (0.0-2.0); EOSINOPHIL % 0.5 % (0.0-4.0); HEMATOCRIT 30.2 % (35.0-46.0); HEMOGLOBIN 10.1 GM/DL (11.6-15.3); LYMPH % 5.5 % (9.0-44.0); LYMPHOCYTE # 0.4 TH/MM3 (1.0-4.8); MEAN CELL VOLUME 87.9 FL (80.0-100.0); MEAN CORPUSCULAR HEMOGLOBIN 29.4 PG (27.0-34.0); MEAN CORPUSCULAR HGB CONC 33.4 % (32.0-36.0); MEAN PLATELET VOLUME 8.5 FL (7.0-11.0); MONO % 4.4 % (0.0-8.0); MONOCYTE # 0.3 TH/MM3 (0-0.9); NEUT % 89.5 % (16.0-70.0); PLATELET COUNT 166 TH/MM3 (150-450); RED BLOOD COUNT 3.44 MIL/MM3 (4.00-5.30); RED CELL DISTRIBUTION WIDTH 13.9 % (11.6-17.2); WHITE BLOOD COUNT 6.8 TH/MM3 (4.0-11.0)
[2017-10-29 01:56] LABS: INTERNATIONAL NORMALIZED RATIO 5.3 RATIO; PROTHROMBIN TIME - PATIENT 52.8 SEC (9.8-11.6)
[2017-10-29 02:12] LABS: ALBUMIN 2.2 GM/DL (3.4-5.0); ALKALINE PHOSPHATASE 108 U/L (45-117); ALT (GPT) 38 U/L (10-53); AST (GOT) 50 U/L (15-37); BICARBONATE 21.2 MEQ/L (21.0-32.0); BLOOD UREA NITROGEN 93 MG/DL (7-18); CALCIUM 7.5 MG/DL (8.5-10.1); CHLORIDE 99 MEQ/L (98-107); CREATININE 3.19 MG/DL (0.50-1.00); GLOMERULAR FILTRATION RATE 14 ML/MIN (>89); GLUCOSE,RANDOM 164 MG/DL (74-106); SODIUM (NA) 129 MEQ/L (136-145); TOTAL BILIRUBIN ADULT 0.8 MG/DL (0.2-1.0); TOTAL PROTEIN 6.6 GM/DL (6.4-8.2); TROPONIN I 0.04 NG/ML (0.02-0.05)
[2017-10-29] MEDS ORDERED: TRIMETHOBENZAMIDE INJ 200 MG/2 ML VIAL IM ONE (02:30)
[2017-10-29] MEDS ORDERED: SODIUM CHLORID 0.9% 500 ML INJ 500 ML IV ONE (02:45)
[2017-10-29] MEDS ORDERED: PROCHLORPERAZINE INJ 10 MG/2 ML VIAL IV PUSH ONE (02:45)
--- NOTE | 2017-10-29 03:50 | RADRPT ---
EXAM DATE/TIME: 10/29/2017 03:23 [facility] COMPARISON: No previous studies available for comparison. INDICATIONS : Abdominal pain. ORAL CONTRAST: No oral contrast ingested. RADIATION DOSE: 27.59 CTDIvol (mGy) ; Patient body habitus MEDICAL HISTORY : Cardiovascular disease. Hernia, hiatal. Diabetes mellitus type 2. SURGICAL HISTORY : Cholecystectomy. Pacemaker.CABG ENCOUNTER: Initial ACUITY: 1 day PAIN SCALE: 10/10 LOCATION: abdomen TECHNIQUE: Volumetric scanning of the abdomen and pelvis was performed. Using automated exposure control and ad justment of the mA and/or kV according to patient size, radiation dose was kept as low as reasonably achievable to obtain optimal diagnostic quality images. DICOM format image data is available electro nically for review and comparison. FINDINGS: LOWER CHEST: The patient is status post sternotomy. There is a pacing lead in place. There is a peripherally calci fied area at the inferior aspect of the heart consistent with a left ventricular aneurysm. There is a minimal left pleural effusion. There is atelectasis or consolidation seen at the bases bilaterally b eing worse on the left. LIVER: Homogeneous density without lesion. There is no dilation of the biliary tree. No calcified gallston es. SPLEEN: Normal size without lesion. PANCREAS: Within normal limits. KIDNEYS: Normal in size and shape. There is no mass, stone, or hydronephrosis. ADRENAL GLANDS: Within normal limits. VASCULAR: There is no aortic aneurysm. Atherosclerotic calcifications are seen. BOWEL/MESENTERY: There are scattered colonic diverticula without inflammatory change. ABDOMINAL WALL: No hernia is seen. There is prominent intraperitoneal fat bulging the abdominal wall. There is indura tion in the superficial subcutaneous tissues at the left anterior abdominal wall likely from subcutan eous injections. RETROPERITONEUM: There is no lymphadenopathy. BLADDER: There is a Rodriguez catheter in place. The bladder is decompressed. REPRODUCTIVE: No focal masses are seen. There is mild free fluid seen in the pelvis. INGUINAL: There is no lymphadenopathy or hernia. MUSCULOSKELETAL: There is degenerative change in the lower lumbar spine. CONCLUSION: 1. No acute intra-abdominal abnormality is seen. 2. Scattered colonic diverticula. 3. 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 The patient is status post sternotomy. 4. Mild free fluid in the pelvis. Kevin North MD on October 29, 2017 at 3:40 Board Certified Radiologist. This report was verified electronically.
[2017-10-29] MEDS: SODIUM CHLOR 0.9% 1000 ML INJ 1,000 ML IV SCH (04:31)
[2017-10-29] MEDS: traMADol HCL 50 MG TAB PO PRN (04:32)
[2017-10-29] MEDS: INSULIN ASPART SUPPLEMENTAL SCALE SQ SCH ×4 (08:00→20:02)
--- NOTE | 2017-10-29 08:08 | RADRPT ---
EXAM DATE/TIME: 10/29/2017 07:34 [facility] COMPARISON: CHEST SINGLE AP, September 10, 2014, 19:49. INDICATIONS : Wheezing and shortness of breath. MEDICAL HISTORY : Unobtainable. SURGICAL HISTORY : Unobtainable. ENCOUNTER: Initial ACUITY: 1 day PAIN SCORE: Non-responsive. LOCATION: chest FINDINGS: Single AP semiupright portable view of the chest demonstrates single lead AICD. Median sternotomy wir es which are intact. Heart size appears minimally enlarged and there is diffuse cephalization of pulm onary vasculature with adjacent indistinctness of the interstitium. The left hemidiaphragm is obscure d. CONCLUSION Findings concerning for left lower lobe consolidation versus atelectasis and congestive he art failure with pulmonary edema. Albertina Villar MD on October 29, 2017 at 8:04 Board Certified Radiologist. This report was verified electronically.
[2017-10-29] MEDS: EPLERENONE 25 MG TAB PO SCH (08:37)
[2017-10-29] MEDS: CARVEDILOL 12.5 MG TAB PO SCH ×2 (08:37→20:01)
--- NOTE | 2017-10-29 08:41 | PD.CONS ---
[facility] Service Nephrology Consult Requested By Reason for Consult Acute on chronic kidney disease Primary Care Physician Enmanuel Ford MD History of Present Illness Ms. Sarmiento came to the ER on 10/25/17 with complaints of diarrhea. Creatinine was 1.9. On the it was 2. Patient has stage IV CKD, baseline creatinine around 1.6-1.7. She has multiple medical problems including CAD, s/p CABG, type 2 diabetes mellitus, ischemic cardiomyopathy with EF of about 45%. Yesterday had about 10 second duration of unresponsiveness. She is now in the ER. She has had positive fluid balance, diuretic and NINO inhibitor held. Renal function is worse however. UA is unremarkable. Patient is a poor historian, says "she is dying". She is hard of hearing. Review of Systems Constitutional: COMPLAINS OF: Fatigue, DENIES: Fever Eyes: DENIES: Blurred vision Ears, nose, mouth, throat: COMPLAINS OF: Hearing loss Cardiovascular: DENIES: Chest pain Gastrointestinal: DENIES: Abdominal pain, Black stools Hematologic/lymphatic: DENIES: Bruising Past Family Social History Allergies: Coded Allergies: ciprofloxacin (Unverified Allergy, Severe, Numbness, 10/25/17) diatrizoate meglumine (Unverified Allergy, Severe, Hives, 10/25/17) erythromycin base (Unverified Allergy, Severe, MAKES ME DOOPY, 10/25/17) gadobenic acid (Unverified Allergy, Severe, Hives, 10/25/17) gadodiamide (Unverified Allergy, Severe, Hives, 10/25/17) gadoteridol (Unverified Allergy, Severe, Hives, 10/25/17) iodixanol (Unverified Allergy, Severe, Hives, 10/25/17) iohexol (Unverified Allergy, Severe, Hives, 10/25/17) penicillin G (Unverified Allergy, Severe, RASH, 10/25/17) colchicine (Unverified Allergy, Unknown, 10/25/17) Past Medical History CAD s/p CABG and stents CHF, EF of 45%. CVA/TIA Type 2 diabetes. Hypertension Hyperlipidemia Past Surgical History CABG [id number] Cardiac cath with stent x1 Cholecystectomy Pacer/AICD placement Left eye cataract removal Vaginal abscess I&D Reported Medications Ativan (Lorazepam) 1 Mg Tab 1 Mg PO DIRECTED PRN 1/2 am, 10/04 4:30pm, 1 hs Zocor (Simvastatin) 20 Mg Tab 20 Mg PO HS Uloric (Febuxostat) 40 Mg Tab 40 Mg PO DAILY Inspra (Eplerenone) 50 Mg Tab 50 Mg PO DAILY Furosemide 40 Mg Tab 40 Mg PO SUTUTHSA Take 1 tablet (40mg) daily on Tuesday,Tuesday, and Tuesday Ramipril 2.5 Mg Cap 2.5 Mg PO BID Coumadin (Warfarin) 1 Mg Tab 1.5 Mg PO SUSA Take 1&1/2 tablets (1.5mg) daily on Tuesday and Tuesday Coumadin (Warfarin) 2 Mg Tab 2 Mg PO MOTUWETHFR Take 1 tablet (2mg) daily on Tuesday,Tuesday,Tuesday, and Tuesday Lantus Inj (Insulin Glargine) 1,000 Unit/10 Ml Vial 60 Units SQ DAILY Humalog Inj (Insulin Human Lispro) 1,000 Unit/10 Ml Vial 2-12 Units SQ ACHS SLIDING SCALE Sliding Scale as directed Carvedilol 25 Mg Tab 12.5 Mg PO BID Active Ordered Medications Current Medications Medications (Trade) Dose Ordered Sig/Hillary Route Start Time Stop Time Status Last Admin (NS Flush) 2 ml UNSCH PRN IV FLUSH 10/26/17 00:15 (NS Flush) 2 ml BID IV FLUSH 10/26/17 09:00 10/27/17 09:30 (Zofran Inj) 4 mg Q6H PRN IVP 10/26/17 00:15 10/29/17 00:27 (Narcan Inj) 0.4 mg UNSCH PRN IV PUSH 10/26/17 00:15 (Coreg) 12.5 mg BID PO 10/26/17 09:00 10/28/17 21:47 (Coumadin) 1.5 mg SuSa PO 10/29/17 16:00 Future Hold (Coumadin) 2 mg MoTuWeThFr PO 10/26/17 16:00 Future Hold (Pravachol) 40 mg HS PO 10/26/17 21:00 10/28/17 21:47 (D50w (Vial) Inj) 50 ml UNSCH PRN IV PUSH 10/26/17 00:30 (Glucagon Inj) 1 mg UNSCH PRN OTHER 10/26/17 00:30 (NovoLOG SUPPLEMENTAL SCALE) 1 ACHS SLIDING SCALE SQ 10/26/17 08:00 10/28/17 21:48 (Lasix) 40 mg SuTuThSa PO 10/27/17 09:00 Future Hold (Inspra) 50 mg DAILY PO 10/26/17 10:00 10/27/17 09:29 Pharmacy Profile Note 0 ml @ 0 mls/hr UNSCH OTHER 10/26/17 12:15 (Ativan) 0.5 mg TID PRN PO 10/26/17 14:00 10/28/17 17:46 Sodium Chloride 1,000 ml @ 60 mls/hr [id number] IV 10/26/17 14:00 10/29/17 04:31 (Lactinex) 1 tab TID PO 10/27/17 09:00 10/28/17 17:45 (Tylenol) 650 mg Q6H PRN PO 10/27/17 09:00 (Ultram) 50 mg Q4H PRN PO 10/27/17 09:00 (Ultram) 100 mg Q4H PRN PO 10/27/17 09:00 10/29/17 04:32 (Robaxin) 500 mg Q8HR PRN PO 10/27/17 09:00 10/27/17 09:29 (Levemir Inj) 26 units Q24H SQ 10/27/17 14:00 10/28/17 14:01 (Lomotil Tab) 1 tab Q6H PRN PO 10/27/17 13:00 (Racepinephrine 2.25% Neb) 0.5 ml Q4HR NEB PRN NEB 10/28/17 09:00 Family History positive for CAD Social History no tobacco or ETOH Physical Exam Vital Signs Vital Signs Date Time Temp Pulse Resp B/P (MAP) Pulse Ox O2 Delivery O2 Flow Rate FiO2 10/29/17 06:00 91 10/29/17 04:00 97 10/29/17 04:00 99.4 97 22 100/53 (69) 97 10/29/17 02:00 113 10/29/17 00:00 98.7 107 24 119/60 (79) 95 10/28/17 20:00 99.3 108 20 112/56 (74) 98 10/28/17 16:45 98.7 96 22 127/58 (81) 98 10/28/17 16:00 73 10/28/17 15:20 97.6 88 18 113/57 (75) 98 10/28/17 12:20 94 10/28/17 11:17 97.5 89 18 106/51 (69) 98 10/28/17 09:17 91 100/58 (72) 96 10/28/17 09:10 98.4 86 16 115/58 (77) 96 10/28/17 09:00 98.3 84 16 101/53 (69) 96 Physical Exam GENERAL: lethargic, hard of hearing. SKIN: Warm and dry. HEAD: Normocephalic. EYES: No scleral icterus. No injection or drainage. NECK: Supple, trachea midline. No JVD or lymphadenopathy. CARDIOVASCULAR: Regular rate and rhythm without murmurs, gallops, or rubs. RESPIRATORY: rales at bases. GASTROINTESTINAL: Abdomen soft, non-tender, nondistended. Obese. MUSCULOSKELETAL: No cyanosis, 1+ edema. BACK: Nontender without obvious deformity. No CVA tenderness. Laboratory Laboratory Tests Test 10/28/17 09:52 10/28/17 14:30 10/28/17 14:55 10/28/17 21:11 Total Creatine Kinase 73 76 81 Troponin I 0.04 0.03 0.02 Prothrombin Time 48.1 Prothromb Time International Ratio 4.8 Test 10/29/17 01:20 10/29/17 02:00 White Blood Count 6.8 Red Blood Count 3.44 Hemoglobin 10.1 Bedside Hemoglobin 9.9 Hematocrit 30.2 Bedside Hematocrit 29.0 Mean Corpuscular Volume 87.9 Mean Corpuscular Hemoglobin 29.4 Mean Corpuscular Hemoglobin Concent 33.4 Red Cell Distribution Width 13.9 Platelet Count 166 Mean Platelet Volume 8.5 Neutrophils (%) (Auto) 89.5 Lymphocytes (%) (Auto) 5.5 Monocytes (%) (Auto) 4.4 Eosinophils (%) (Auto) 0.5 Basophils (%) (Auto) 0.1 Neutrophils # (Auto) 6.1 Lymphocytes # (Auto) 0.4 Monocytes # (Auto) 0.3 Eosinophils # (Auto) 0.0 Basophils # (Auto) 0.0 CBC Comment DIFF FINAL Differential Comment Prothrombin Time 52.8 Prothromb Time International Ratio 5.3 Blood Gas Puncture Site RT RADIAL Blood Gas Patient Temperature 98.6 Blood Gas HCO3 17 Blood Gas Base Excess -8.6 Blood Gas Oxygen Saturation 98 Arterial Blood pH 7.27 Arterial Blood Partial Pressure CO2 39 Arterial Blood Partial Pressure O2 277 Arterial Blood Oxygen Content 14.3 Arterial Blood Carboxyhemoglobin 0.7 Arterial Blood Methemoglobin 1.1 Blood Gas Hemoglobin 9.9 Oxygen Delivery Device NRB Blood Gas Liter Flow 15 Blood Gas Inspired Oxygen 100 Bedside Sodium 130 Blood Urea Nitrogen 93 Creatinine 3.19 Random Glucose 164 Total Protein 6.6 Albumin 2.2 Calcium Level 7.5 Alkaline Phosphatase 108 Aspartate Amino Transf (AST/SGOT) 50 Alanine Aminotransferase (ALT/SGPT) 38 Total Bilirubin 0.8 Sodium Level 129 Potassium Level 4.8 Chloride Level 99 Carbon Dioxide Level 21.2 Bedside Potassium 4.9 Bedside Chloride 100 Anion Gap 9 Bedside Blood Urea Nitrogen 101 Bedside Creatinine 3.1 Estimat Glomerular Filtration Rate 14 Bedside Glucose 165 Lactic Acid Level 2.4 Total Creatine Kinase 86 Troponin I 0.04 Nasal Screen MRSA (PCR) MRSA NOT DETECTED Date/Time Source Procedure Growth Status 10/25/17 21:00 Stool Stool Cryptosporidium Exam - Final NEGATIVE - NO CRYPTOSPORIDIUM ANTIGEN... Complete 10/25/17 21:00 Stool Stool Giardia Antigen (FABIAN) - Final NEGATIVE - NO GIARDIA ANTIGEN DETECTE... 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 Acute worsening initially could have been due to drop in BP, intravascular volume depletion. No improvement with hydration. May have suffered ATN. Obtain urine electrolytes. Avoid nephrotoxic agents. Maintain MAP above 65. Obtain renal US. I will give her Albumin and a dose of Lasix. Hold IVF. (2) Diabetes mellitus ICD Codes: E11.9 - Diabetes mellitus Status: Chronic Plan: continue insulin coverage to maintain blood glucose between 140 and 180 while hospitalized. (3) Hypertension ICD Codes: I10 - Hypertension Status: Chronic Plan: BP is currently low normal. Ramipril held. I will suspend Inspra for the time being. (4) Diarrhea ICD Codes: R19.7 - Diarrhea, unspecified Plan: Appears to have improved. C.diff negative. (5) Coagulopathy ICD Codes: D68.9 - Coagulation defect, unspecified Plan: Hold Warfarin. Assessment and Plan Thanks for the consult. Lonnie Duarte MD Oct 29, 2017 08:41
[2017-10-29] MEDS: LACTOBACILLUS ACIDOPHILUS TAB PO SCH ×3 (09:03→18:26)
[2017-10-29] MEDS: SODIUM CHLORIDE 0.9% FLUSH 10 ML FLUSH IV FLUSH SCH ×2 (09:03→20:02)
--- NOTE | 2017-10-29 09:06 | MG ---
cc: LEELA EATON M.D. Lab No: Date: 10/28/2017 Age: 82 Sex: F Race: EEG was obtained this 82-year-old patient being evaluated for syncope. The patient is described as awake and asleep. This EEG shows a mixture of beta and theta rhythms predominantly. There is some intermixed alpha activity but there are also some delta rhythms. There is questionable more of the slower rhythms on the left than right temporal head regions. There are no paroxysmal discharge. The patient is awake and drowsy. Photic stimulation showed no change. Later on when there is more wakefulness, much lesser amount of slowing is noted. INTERPRETATION Mildly abnormal EEG because of mild slowing bilaterally questionably left more than right. No epileptiform features are present. The findings suggest mild diffuse disturbance of cerebral function and also raised the possibility of small left hemisphere structural abnormality. Leela Eaton MD [facility]/ /8:07 PM /8:36 AM
--- NOTE | 2017-10-29 11:38 | HHI.PR ---
Subjective Remarks Discussed case with RN Patient c/o sob Denies cp Objective Vitals Vital Signs Date Time Temp Pulse Resp B/P (MAP) Pulse Ox O2 Delivery O2 Flow Rate FiO2 10/29/17 09:35 100 Nasal Cannula 5.00 10/29/17 09:30 94 21 108/59 (75) 100 10/29/17 09:15 92 20 119/66 (83) 100 10/29/17 09:01 93 19 107/62 (77) 100 10/29/17 08:45 101 22 106/52 (70) 99 10/29/17 08:30 100 29 112/51 (71) 97 10/29/17 08:15 100 27 102/57 (72) 99 10/29/17 08:00 96 22 101/56 (71) 98 10/29/17 08:00 87 10/29/17 06:00 91 10/29/17 04:00 97 10/29/17 04:00 99.4 97 22 100/53 (69) 97 10/29/17 02:00 113 10/29/17 00:00 98.7 107 24 119/60 (79) 95 10/28/17 20:00 99.3 108 20 112/56 (74) 98 10/28/17 16:45 98.7 96 22 127/58 (81) 98 10/28/17 16:00 73 10/28/17 15:20 97.6 88 18 113/57 (75) 98 10/28/17 12:20 94 I/O 10/28/17 10/28/17 10/28/17 10/29/17 10/29/17 10/29/17 07:00 15:00 23:00 07:00 15:00 23:00 Intake Total 500 ml 480 ml 1873 ml Output Total 300 ml 175 ml Balance 500 ml -300 ml 480 ml 1698 ml Intake Oral 500 ml 480 ml IV Total 1873 ml Output Urine Total 300 ml 175 ml # Voids 3 # Bowel Movements 0 0 0 Result Diagram: 10/29/17 0120 10/29/17 0120 Objective Remarks GENERAL: Well-nourished, well-developed elderly female patient in NAD. SKIN: Warm and dry. No rash. CARDIOVASCULAR: Regular rate and rhythm. S1, S2 noted. No murmur appreciated. RESPIRATORY: Diffuse BL expiratory wheezing ore audible in the upper airways and throat. GASTROINTESTINAL: Abdomen soft, non-tender, nondistended. Normoactive bowel sounds x4. MUSCULOSKELETAL: No obvious deformities. 1+ BLE edema. Left anterior shoulder mildly tender to palpation, decreased active ROM, full passive ROM. NEUROLOGICAL: Awake and alert. No obvious cranial nerve deficits. Motor grossly within normal limits. Normal speech. PSYCHIATRIC: Slightly anxious mood; insight and judgment normal. Procedures none Medications and IVs Last Impressions Renal Ultrasound 10/29/17 0000 Signed Impressions: Service Date/Time: Sunday, October 29, 2017 16:00 - CONCLUSION: Tiny nonobstructing stones in both kidneys. Otherwise within normal limits. Kevin Sweet MD Head CT 10/29/17 0000 Signed Impressions: Service Date/Time: Sunday, October 29, 2017 20:35 - CONCLUSION: No acute intracranial abnormality demonstrated. Kevin Sweet MD Chest X-Ray 10/29/17 0000 Signed Impressions: Service Date/Time: Sunday, October 29, 2017 07:34 - CONCLUSION: Abdomen/Pelvis CT 10/29/17 0000 Signed Impressions: Service Date/Time: Sunday, October 29, 2017 03:23 - CONCLUSION: 1. No acute intra-abdominal abnormality is seen. 2. Scattered colonic diverticula. 3. 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 The patient is status post sternotomy. 4. Mild free fluid in the pelvis. Kevin North MD Shoulder X-Ray 10/28/17 0000 Signed Impressions: Service Date/Time: Saturday, October 28, 2017 09:35 - CONCLUSION: Degenerative changes. No fracture. Jalen Campbell MD FACR A/P Problem List: (1) Diarrhea ICD Code: R19.7 - Diarrhea, unspecified (2) Gastroenteritis ICD Code: K52.9 - Noninfective gastroenteritis and colitis, unspecified (3) Acute renal insufficiency ICD Code: N28.9 - Acute renal insufficiency Status: Acute (4) Reactive airway disease ICD Code: J45.909 - Unspecified asthma, uncomplicated Status: Acute Assessment and Plan 82-year-old female with history of CAD s/p CABG and stents, CHF, CVA/TIA, DM, HTN, HLD, anticoagulated on Coumadin, anxiety, presents with a 3 day history of intractable diarrhea. Diarrhea: suspect secondary to viral gastroenteritis. No abdominal pain, nausea , or vomiting. Afebrile, no leukocytosis. Improved diarrhea on Lactinex and Lomotil -C.diff negative -Stool studies pending negative to date -Supportive treatment with IVF, antiemetics, pain control prn -Give gentle IVF hydration with NS(caution with CHF) -Monitor for improvement JUAN on CKD stage III: Cr 2.04, previously 1.62 on 09/02/17. Suspect secondary to dehydration from diarrhea. Worse because of decreased oral intake and patient not receiving IV fluid. Nonoliguric -Giving gentle IVF as above, increase to 60 cc an hour -Avoid nephrotoxins -Holding lasix and NINO -Monitor BMP - Nephrology consulted. Acute worsening initially could have been due to drop in BP, intravascular volume depletion. No improvement with hydration. May have suffered ATN. As per nephrology one dose of albumin and IV lasix administered. Brief syncope likely from hypotension. RN reports that her head was shaking. Systolic blood pressure 92 received 500 cc bolus. Fingersticks within normal limits. Recent doesn't recall the events. Pacer interrogation unremarkable. Trend cardiac enzymes and check EEG dw cards CHF, CAD s/p CABG, HTN, HLD: chronic, stable -continue patient's home medications with statin, coreg -holding ramipril and lasix with JUAN - Dc IV fluids. INR supratherapeutic - continue to hold Coumadin. Diabetes Mellitus: with episode of hypoglycemia with BG 50 prior to arrival, secondary to decreased oral intake and long acting insulin -Improved hyperglycemia ct Lantus 26 units at bedtime. Hypoglycemia protocol -Monitor accu-checks and cover with SSI -diabetic diet Supratherapeutic INR: unclear why patient is on Coumadin, she reports it is for her heart, also has history of stroke. -Continue to hold Coumadin -Monitor daily PT/INR -Pharmacy consult Left Shoulder Pain: acute on chronic, after working with PT today in hospital -give Tylenol and tramadol prn pain. Warm compresses -PT to eval/treat Anxiety: acute on chronic, patient anxious in ER -continue patient's ativan 0.5mg po tid prn anxiety Acute hypoxemic respiratory failure. -CXR with features consistent with congestive heart failure. Agree with IV lasix and Albumin for now. - Patient with moderate respiratory distress and wheezing on exam - will give Solumedrol 125 mg IV x1. - continue supplemental O2 to keep o2 sat >92%. DVT Prophylaxis: on Coumadin with supratherapeutic INR Discharge Planning continue to monitor in the intensive care unit. Problem Qualifiers (1) Reactive airway disease: Frank Harris MD Oct 29, 2017 11:38
[2017-10-29] MEDS: ALBUMIN 25% INJ 50 ML IV SCH (11:52)
[2017-10-29] MEDS ORDERED: methylPREDNISolone SOD SUCC 125 MG/2 ML VIAL IV PUSH ONE (12:00)
[2017-10-29] MEDS ORDERED: FUROSEMIDE 20 MG/2 ML VIAL IV PUSH ONE (12:00)
--- NOTE | 2017-10-29 12:03 | MB ---
cc: INOCENCIA GODFREY MD DATE OF CONSULTATION: 10/29/2017. REASON FOR CONSULTATION: She is an 82-year-old female seen in neurological consultation. HISTORY OF PRESENT ILLNESS: The patient had another transient unresponsive episode in the middle of the night. I believe that is the case. I was called in during the night, though I am not absolutely certain as I did not write the name. At that time, the patient was unresponsive with an increased heart rate and atrial fibrillation. On looking at the record, she had another episode of brief unresponsiveness yesterday morning. She is in the intensive care unit. The patient has been in the hospital since the and she came in with intractable diarrhea. PAST MEDICAL HISTORY: There is a history of a pacemaker and a CABG. She tells me she had a stroke many years ago that affected her right leg. She is diabetic. MEDICATIONS: She has she has been on Coumadin along with other medications, also on insulin and Zocor. LABORATORY STUDIES: The labs from today includes: White count 6.8, hemoglobin 10.1, platelets 166,000. Sodium 130, potassium 4.9, BUN 93, creatinine 3.19, glucose 165, AST 50, ALT 38. INR 5.3 today, 4.8 yesterday and 3.4 on 10/26. EXAMINATION: She actually awakened easily and became reasonably alert. She is oriented, pleasant, cooperative and provides some information which appeared all appropriate. Ocular movements and visual iglesias were full. Pupils small but reactive. There is not any obvious facial weakness. She raised the arm and she has generalized weakness but starts raising the lower extremities. The reflexes were absent throughout. Plantar response is flexor. Sensory exam symmetrical. ASSESSMENT: Transient unresponsiveness probably on the base of her underlying medical problems. There are cardiovascular issues and there was some concern about sepsis. She is over-anticoagulated with INR as above and evidently warfarin on hold. Will request a CT brain and EEG studies. I will follow these. Otherwise, medically clear. Thank you for asking to assist in her care. MD PATTIE Plaza/JCC /8:44 AM /11:38 AM
[2017-10-29 13:26] LABS: AUTOMATED NEUTROPHIL # 5.2 TH/MM3 (1.8-7.7); BASOPHIL % 0.1 % (0.0-2.0); EOSINOPHIL # 0.1 TH/MM3 (0-0.4); EOSINOPHIL % 1.4 % (0.0-4.0); HEMATOCRIT 29.1 % (35.0-46.0); HEMOGLOBIN 9.7 GM/DL (11.6-15.3); LYMPHOCYTE # 0.3 TH/MM3 (1.0-4.8); MEAN CORPUSCULAR HEMOGLOBIN 29.2 PG (27.0-34.0); MEAN CORPUSCULAR HGB CONC 33.2 % (32.0-36.0); MEAN PLATELET VOLUME 8.7 FL (7.0-11.0); MONO % 5.3 % (0.0-8.0); MONOCYTE # 0.3 TH/MM3 (0-0.9); NEUT % 88.2 % (16.0-70.0); PLATELET COUNT 150 TH/MM3 (150-450); RED BLOOD COUNT 3.31 MIL/MM3 (4.00-5.30); RED CELL DISTRIBUTION WIDTH 14.1 % (11.6-17.2); WHITE BLOOD COUNT 5.9 TH/MM3 (4.0-11.0)
[2017-10-29] MEDS: INSULIN DETEMIR 100 UNITS/ML VIAL SQ SCH (13:30)
[2017-10-29 13:50] LABS: BICARBONATE 19.9 MEQ/L (21.0-32.0); CALCIUM 7.6 MG/DL (8.5-10.1); CREATININE 3.5 MG/DL (0.50-1.00); MAGNESIUM 1.9 MG/DL (1.5-2.5)
[2017-10-29 14:12] LABS: CALCIUM 7.6 MG/DL (8.5-10.1); CREATININE 3.44 MG/DL (0.50-1.00)
--- NOTE | 2017-10-29 14:32 | EKG ---
Date Performed: 10/28/2017 Time Performed: 08:19:31 PTAGE: 82 years EKG: ATRIAL FIBRILLATION INFERIOR MYOCARDIAL INFARCTION ST DEPRESSION, CONSIDER SUBENDOCARDIAL I NJURY ABNORMAL ECG PREVIOUS TRACING : 10/28/2017 06.52 Possible inferior myocardial infarction more prominent than in old tracing. Clinical correlation is recommended. DOCTOR: Darius Linn Interpretating Date/Time 10/29/2017 14:30:18
[2017-10-29] MEDS ORDERED: WARFARIN SOD 1 MG TAB PO SCH (16:00)
--- NOTE | 2017-10-29 16:56 | RADRPT ---
EXAM DATE/TIME: 10/29/2017 16:00 [facility] COMPARISON: No previous studies available for comparison. INDICATIONS : Increased BUN/Creatinine. MEDICAL HISTORY : Myocardial infarction. Congestive heart failure. Hypercholesterolemia. Hearing loss. Milmay palsy. Cer ebrovascular accident. Arrhythmia. Coronary artery disease. Anticoagulant therapy. Hyperlipidemia. Hy pertension. Hiatal hernia. Gastric ulcers. Arthritis. Diabetes. Anxiety. Measles. MRSA. SURGICAL HISTORY : Cholecystectomy. Coronary artery stent. CABG. Internal defibrillator. Left cataract removal. ENCOUNTER: Initial ACUITY: 1 day PAIN SCORE: 2/10 LOCATION: Bilateral flank MEASUREMENTS: RIGHT KIDNEY: 10.8 x 3.9 x 4.5 cm LEFT KIDNEY: 9.8 x 3.3 x 5.0 cm FINDINGS: Parenchymal echogenicity within normal limits. There is a 5 mm right lower pole and a 6 mm left lower pole stone, both appear to be nonobstructing. No hydronephrosis is seen. No masses are demonstrated. Urinary bladder is decompressed with a Rodriguez catheter, grossly unremarkable. CONCLUSION: Tiny nonobstructing stones in both kidneys. Otherwise within normal limits. Kevin Sweet MD on October 29, 2017 at 16:51 Board Certified Radiologist. This report was verified electronically.
[2017-10-29] MEDS: PRAVASTATIN SOD 20 MG TAB PO SCH (20:01)
--- NOTE | 2017-10-29 20:47 | RADRPT ---
EXAM DATE/TIME: 10/29/2017 20:35 [facility] COMPARISON: No previous studies available for comparison. INDICATIONS : Altered mental status. RADIATION DOSE: 51.96 CTDIvol (mGy) MEDICAL HISTORY : Non-responsive. SURGICAL HISTORY : Non-responsive. ENCOUNTER: Initial ACUITY: 1 day PAIN SCALE: Non-responsive LOCATION: cranial TECHNIQUE: Multiple contiguous axial images were obtained of the head. Using automated exposure control and adj ustment of the mA and/or kV according to patient size, radiation dose was kept as low as reasonably a chievable to obtain optimal diagnostic quality images. DICOM format image data is available electro nically for review and comparison. FINDINGS: CEREBRUM: The ventricles are normal for age. No evidence of midline shift, mass lesion, hemorrhage or acute in farction. No extra-axial fluid collections are seen. POSTERIOR FOSSA: The cerebellum and brainstem are intact. The 4th ventricle is midline. The cerebellopontine angle i s unremarkable. EXTRACRANIAL: The visualized portion of the orbits is intact. SKULL: The calvaria is intact. No evidence of skull fracture. CONCLUSION: No acute intracranial abnormality demonstrated. Kevin Sweet MD on October 29, 2017 at 20:44 Board Certified Radiologist. This report was verified electronically.
[2017-10-30] VITALS (13 sets, daily range): BP systolic 97–115; BP diastolic 52–69; PULSE 67–87; RESP 13–21; TEMP 97.3–98; O2SAT 95–98
[2017-10-30] MEDS: ALBUMIN 25% INJ 50 ML IV SCH ×2 (00:24→12:29)
[2017-10-30 06:10] LABS: INTERNATIONAL NORMALIZED RATIO 4.2 RATIO
[2017-10-30 06:21] LABS: ALBUMIN 2.4 GM/DL (3.4-5.0); BICARBONATE 17.7 MEQ/L (21.0-32.0); CALCIUM 7.2 MG/DL (8.5-10.1); CREATININE 4.22 MG/DL (0.50-1.00); PHOSPHORUS 6.4 MG/DL (2.5-4.9)
[2017-10-30] MEDS: CARVEDILOL 12.5 MG TAB PO SCH ×2 (09:00→20:54)
[2017-10-30] MEDS: LACTOBACILLUS ACIDOPHILUS TAB PO SCH ×3 (09:19→18:00)
[2017-10-30] MEDS: SODIUM CHLORIDE 0.9% FLUSH 10 ML FLUSH IV FLUSH SCH ×2 (09:19→20:55)
[2017-10-30] MEDS: INSULIN ASPART SUPPLEMENTAL SCALE SQ SCH ×4 (09:24→20:55)
[2017-10-30] MEDS ORDERED: SODIUM CHLORID 0.9% 500 ML INJ 500 ML IV STA (09:47)
[2017-10-30] MEDS ORDERED: SODIUM CHLOR 0.9% 1000 ML INJ 1,000 ML OTHER PRN ×2 (09:48)
[2017-10-30] MEDS ORDERED: SODIUM CHLOR 0.9% 1000 ML INJ 1,000 ML IV PRN (09:48)
--- NOTE | 2017-10-30 09:52 | HHI.PR ---
Subjective Remarks Patient denies sob, denies cp. Denies fevers or chills. BP noted to be low. Objective Vitals Vital Signs Date Time Temp Pulse Resp B/P (MAP) Pulse Ox O2 Delivery O2 Flow Rate FiO2 10/30/17 08:00 97.5 80 14 99/54 (69) 96 10/30/17 06:00 85 10/30/17 04:30 98 Nasal Cannula 5.00 10/30/17 04:00 97.6 81 14 98/55 (69) 97 10/30/17 04:00 81 10/30/17 02:00 69 10/30/17 00:00 67 10/30/17 00:00 97.9 67 13 115/54 (74) 98 10/29/17 23:55 98 Nasal Cannula 5.00 10/29/17 22:00 72 10/29/17 20:00 79 10/29/17 20:00 96 Nasal Cannula 5.00 10/29/17 20:00 97.7 79 13 113/57 (75) 98 10/29/17 18:00 90 10/29/17 16:00 87 22 108/57 (74) 99 10/29/17 16:00 87 10/29/17 15:45 89 17 105/55 (72) 99 10/29/17 15:30 86 18 112/55 (74) 98 10/29/17 15:15 82 19 104/56 (72) 98 10/29/17 15:00 96 10/29/17 15:00 96 22 105/55 (72) 97 10/29/17 14:45 89 22 111/55 (73) 96 10/29/17 14:45 89 10/29/17 14:30 83 23 114/58 (76) 97 10/29/17 14:30 83 10/29/17 14:15 94 18 102/53 (69) 96 10/29/17 14:15 94 10/29/17 14:00 89 21 101/55 (70) 96 10/29/17 14:00 89 10/29/17 13:45 92 35 111/79 (90) 98 10/29/17 13:45 92 10/29/17 13:44 92 37 110/80 (90) 98 10/29/17 13:44 92 1/27/18 13:15 93 10/29/17 13:15 93 28 103/54 (70) 98 10/29/17 13:00 91 31 110/57 (74) 98 10/29/17 13:00 91 10/29/17 12:46 93 26 115/61 (79) 98 10/29/17 12:46 93 10/29/17 12:31 92 20 115/78 (90) 99 10/29/17 12:31 92 10/29/17 12:15 91 27 102/59 (73) 99 10/29/17 12:15 91 10/29/17 12:00 91 10/29/17 12:00 91 26 99/54 (69) 100 10/29/17 11:45 97 10/29/17 11:16 85 10/29/17 11:00 96 10/29/17 10:45 92 10/29/17 10:30 86 10/29/17 10:16 91 10/29/17 10:00 89 I/O 10/29/17 10/29/17 10/29/17 10/30/17 10/30/17 10/30/17 07:00 15:00 23:00 07:00 15:00 23:00 Intake Total 1873 ml 440 ml 170 ml Output Total 175 ml 150 ml 125 ml Balance 1698 ml 290 ml 45 ml Intake Oral 440 ml 120 ml IV Total 1873 ml 50 ml Output Urine Total 175 ml 150 ml 125 ml # Bowel Movements 0 Result Diagram: 10/29/17 1245 10/30/17 0440 Imaging Last Impressions Renal Ultrasound 10/29/17 0000 Signed Impressions: Service Date/Time: Sunday, October 29, 2017 16:00 - CONCLUSION: Tiny nonobstructing stones in both kidneys. Otherwise within normal limits. Kevin Sweet MD Head CT 10/29/17 0000 Signed Impressions: Service Date/Time: Sunday, October 29, 2017 20:35 - CONCLUSION: No acute intracranial abnormality demonstrated. Kevin Sweet MD Chest X-Ray 10/29/17 0000 Signed Impressions: Service Date/Time: Sunday, October 29, 2017 07:34 - CONCLUSION: Abdomen/Pelvis CT 10/29/17 0000 Signed Impressions: Service Date/Time: Sunday, October 29, 2017 03:23 - CONCLUSION: 1. No acute intra-abdominal abnormality is seen. 2. Scattered colonic diverticula. 3. 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 The patient is status post sternotomy. 4. Mild free fluid in the pelvis. Kevin North MD Shoulder X-Ray 10/28/17 0000 Signed Impressions: Service Date/Time: Saturday, October 28, 2017 09:35 - CONCLUSION: Degenerative changes. No fracture. Jalen Campbell MD FACR Objective Remarks GENERAL: Well-nourished, well-developed elderly female patient in NAD. SKIN: Warm and dry. No rash. CARDIOVASCULAR: Regular rate and rhythm. S1, S2 noted. No murmur appreciated. RESPIRATORY: Diffuse BL expiratory wheezing ore audible in the upper airways and throat. GASTROINTESTINAL: Abdomen soft, non-tender, nondistended. Normoactive bowel sounds x4. MUSCULOSKELETAL: No obvious deformities. 1+ BLE edema. Left anterior shoulder mildly tender to palpation, decreased active ROM, full passive ROM. NEUROLOGICAL: Awake and alert. No obvious cranial nerve deficits. Motor grossly within normal limits. Normal speech. PSYCHIATRIC: Slightly anxious mood; insight and judgment normal. Procedures none Medications and IVs Current Medications Medications (Trade) Dose Ordered Sig/Hillary Route Start Time Stop Time Status Last Admin (NS Flush) 2 ml UNSCH PRN IV FLUSH 10/26/17 00:15 (NS Flush) 2 ml BID IV FLUSH 10/26/17 09:00 10/30/17 09:19 (Zofran Inj) 4 mg Q6H PRN IVP 10/26/17 00:15 10/29/17 00:27 (Narcan Inj) 0.4 mg UNSCH PRN IV PUSH 10/26/17 00:15 (Coreg) 12.5 mg BID PO 10/26/17 09:00 10/29/17 20:01 (Coumadin) 1.5 mg SuSa PO 10/29/17 16:00 Future Hold (Coumadin) 2 mg MoTuWeThFr PO 10/26/17 16:00 Future Hold (Pravachol) 40 mg HS PO 10/26/17 21:00 10/29/17 20:01 (D50w (Vial) Inj) 50 ml UNSCH PRN IV PUSH 10/26/17 00:30 (Glucagon Inj) 1 mg UNSCH PRN OTHER 10/26/17 00:30 (NovoLOG SUPPLEMENTAL SCALE) 1 ACHS SLIDING SCALE SQ 10/26/17 08:00 10/30/17 09:24 (Lasix) 40 mg SuTuThSa PO 10/27/17 09:00 Future Hold (Inspra) 50 mg DAILY PO 10/26/17 10:00 Future Hold 10/27/17 09:29 Pharmacy Profile Note 0 ml @ 0 mls/hr UNSCH OTHER 10/26/17 12:15 (Ativan) 0.5 mg TID PRN PO 10/26/17 14:00 10/28/17 17:46 (Lactinex) 1 tab TID PO 10/27/17 09:00 10/30/17 09:19 (Tylenol) 650 mg Q6H PRN PO 10/27/17 09:00 (Ultram) 50 mg Q4H PRN PO 10/27/17 09:00 10/30/17 01:54 (Ultram) 100 mg Q4H PRN PO 10/27/17 09:00 10/29/17 04:32 (Robaxin) 500 mg Q8HR PRN PO 10/27/17 09:00 10/27/17 09:29 (Levemir Inj) 26 units Q24H SQ 10/27/17 14:00 10/28/17 14:01 (Lomotil Tab) 1 tab Q6H PRN PO 10/27/17 13:00 (Racepinephrine 2.25% Neb) 0.5 ml Q4HR NEB PRN NEB 10/28/17 09:00 10/29/17 09:35 Albumin Human 50 ml @ 60 mls/hr Q12H IV 10/30/17 12:00 10/31/17 11:59 Sodium Chloride 1,000 ml @ 0 mls/hr Q0M PRN OTHER 10/30/17 09:48 (Heparin Inj) 8,000 units UNSCH PRN IV FLUSH 10/30/17 10:00 Sodium Chloride 1,000 ml @ 200 mls/hr Q5H PRN IV 10/30/17 09:48 Sodium Chloride 1,000 ml @ 0 mls/hr Q0M PRN OTHER 10/30/17 09:48 (Mannitol Inj) 12.5 gm UNSCH PRN IV 10/30/17 10:00 Albumin Human 100 ml @ 60 mls/hr UNSCH PRN IV 10/30/17 10:00 (NS Flush) 5 ml UNSCH PRN IV FLUSH 10/30/17 10:00 (Heparin Inj) UNSCH PRN .XX 10/30/17 10:00 (Gentamicin Inj) 20 mg UNSCH PRN OTHER 10/30/17 10:00 (Zofran Inj) 4 mg UNSCH PRN IV PUSH 10/30/17 10:00 (Tylenol) 650 mg UNSCH PRN PO 10/30/17 10:00 (Benadryl) 25 mg UNSCH PRN PO 10/30/17 10:00 (Nitrostat Sl) 0.4 mg UNSCH PRN SL 10/30/17 10:00 (Catapres) 0.1 mg UNSCH PRN PO 10/30/17 10:00 (Gelfoam 12 Mm/7 Mm Top) 1 foam UNSCH PRN TOP 10/30/17 10:00 Aztreonam 500 mg/ Sodium Chloride 100 ml @ 200 mls/hr Q12H IV 10/30/17 11:00 A/P Problem List: (1) Diarrhea ICD Code: R19.7 - Diarrhea, unspecified (2) Gastroenteritis ICD Code: K52.9 - Noninfective gastroenteritis and colitis, unspecified (3) Acute renal insufficiency ICD Code: N28.9 - Acute renal insufficiency Status: Acute (4) Reactive airway disease ICD Code: J45.909 - Unspecified asthma, uncomplicated Status: Acute Assessment and Plan 82-year-old female with history of CAD s/p CABG and stents, CHF, CVA/TIA, DM, HTN, HLD, anticoagulated on Coumadin, anxiety, presents with a 3 day history of intractable diarrhea. Diarrhea: suspect secondary to viral gastroenteritis. No abdominal pain, nausea , or vomiting. Afebrile, no leukocytosis. Improved diarrhea on Lactinex and Lomotil -C.diff negative -Stool studies pending negative to date -Supportive treatment with IVF, antiemetics, pain control prn -Give gentle IVF hydration with NS(caution with CHF) -Monitor for improvement - Diarrhea resolved. JUAN on CKD stage III: Cr 2.04, previously 1.62 on 09/02/17. Suspect secondary to dehydration from diarrhea. Worse because of decreased oral intake and patient not receiving IV fluid. Nonoliguric -Giving gentle IVF as above, increase to 60 cc an hour -Avoid nephrotoxins -Holding lasix and NINO -Monitor BMP - Nephrology consulted. Acute worsening initially could have been due to drop in BP, intravascular volume depletion. No improvement with hydration. May have suffered ATN. As per nephrology one dose of albumin and IV lasix administered. - 10/30 Creatine continues to worsen, now up to 4.2. Suspect ATN due to hypotension. Discussed case with Dr Duarte, will give a fluid bolus since patient is hypotensive. Nephrology recommends Dialysis, Dr Duarte discussed the patient's condition and need of dialysis with the patient's son and is awaiting a response to start dialysis or not. Brief syncope likely from hypotension. RN reports that her head was shaking. Systolic blood pressure 92 received 500 cc bolus. Fingersticks within normal limits. Recent doesn't recall the events. Pacer interrogation unremarkable. Trend cardiac enzymes and check EEG dw cards CHF, CAD s/p CABG, HTN, HLD: chronic, stable -continue patient's home medications with statin, coreg -holding ramipril and lasix with JUAN - INR supratherapeutic - continue to hold Coumadin. Monitor PT/INR daily. There is no evidence of active bleeding. Diabetes Mellitus: with episode of hypoglycemia with BG 50 prior to arrival, secondary to decreased oral intake and long acting insulin -Improved hyperglycemia ct Lantus 26 units at bedtime. Hypoglycemia protocol -Monitor accu-checks and cover with SSI -diabetic diet Supratherapeutic INR: unclear why patient is on Coumadin, she reports it is for her heart, also has history of stroke. -Continue to hold Coumadin -Monitor daily PT/INR -Pharmacy consult Left Shoulder Pain: acute on chronic, after working with PT today in hospital -give Tylenol and tramadol prn pain. Warm compresses -PT to eval/treat Anxiety: acute on chronic, patient anxious in ER -continue patient's ativan 0.5mg po tid prn anxiety Acute hypoxemic respiratory failure. -CXR with features consistent with congestive heart failure. Agree with IV lasix and Albumin for now. - Patient with moderate respiratory distress and wheezing on exam - will give Solumedrol 125 mg IV x1. - 10/30 the patient status post IV Lasix and IV albumin on 10/29. With the distress and wheezing have resolved after Solu-Medrol 125 mg IV. - Continue supplemental O2 to keep o2 sat >92%. DVT Prophylaxis: on Coumadin with supratherapeutic INR Discharge Planning continue to monitor in the intensive care unit. Problem Qualifiers (1) Reactive airway disease: Frank Harris MD Oct 30, 2017 09:52
--- NOTE | 2017-10-30 09:59 | HHI.NPPN ---
Subjective Interval History Oliguric. Renal function is worse. Hyperkalemia and hyponatremia noted. Abdominal distension is noted. Review of Systems General Constitutional: Fatigue Gastrointestinal GI Remarks abdominal distension Objective Data Data Vital Signs Date Time Temp Pulse Resp B/P (MAP) Pulse Ox O2 Delivery O2 Flow Rate FiO2 10/30/17 08:00 97.5 80 14 99/54 (69) 96 10/30/17 06:00 85 10/30/17 04:30 98 Nasal Cannula 5.00 10/30/17 04:00 97.6 81 14 98/55 (69) 97 10/30/17 04:00 81 10/30/17 02:00 69 10/30/17 00:00 67 10/30/17 00:00 97.9 67 13 115/54 (74) 98 10/29/17 23:55 98 Nasal Cannula 5.00 10/29/17 22:00 72 10/29/17 20:00 79 10/29/17 20:00 96 Nasal Cannula 5.00 10/29/17 20:00 97.7 79 13 113/57 (75) 98 10/29/17 18:00 90 10/29/17 16:00 87 22 108/57 (74) 99 10/29/17 16:00 87 10/29/17 15:45 89 17 105/55 (72) 99 10/29/17 15:30 86 18 112/55 (74) 98 10/29/17 15:15 82 19 104/56 (72) 98 10/29/17 15:00 96 10/29/17 15:00 96 22 105/55 (72) 97 10/29/17 14:45 89 22 111/55 (73) 96 10/29/17 14:45 89 10/29/17 14:30 83 23 114/58 (76) 97 10/29/17 14:30 83 10/29/17 14:15 94 18 102/53 (69) 96 10/29/17 14:15 94 10/29/17 14:00 89 21 101/55 (70) 96 10/29/17 14:00 89 10/29/17 13:45 92 35 111/79 (90) 98 10/29/17 13:45 92 10/29/17 13:44 92 37 110/80 (90) 98 10/29/17 13:44 92 10/29/17 13:15 93 10/29/17 13:15 93 28 103/54 (70) 98 10/29/17 13:00 91 31 110/57 (74) 98 10/29/17 13:00 91 10/29/17 12:46 93 26 115/61 (79) 98 10/29/17 12:46 93 10/29/17 12:31 92 20 115/78 (90) 99 10/29/17 12:31 92 10/29/17 12:15 91 27 102/59 (73) 99 10/29/17 12:15 91 10/29/17 12:00 91 10/29/17 12:00 91 26 99/54 (69) 100 10/29/17 11:45 97 10/29/17 11:16 85 10/29/17 11:00 96 10/29/17 10:45 92 10/29/17 10:30 86 10/29/17 10:16 91 10/29/17 10:00 89 -: 10/29/17 1245 10/30/17 0440 Physical Exam General Appearance: No Acute Distress Appearance Remarks hard of hearing. Eyes Eye Exam: Pupils Equal, Pupils Reactive Throat Throat Exam: Oral Mucosa [place] & Moist Neck Neck Exam: Neck Supple Pulmonary Resp Exam: Clear Bilaterally, Breath Sounds Equal Cardiology CV Exam: Regular Gastrointestinal/Abdomen GI Exam: Soft, Distended, Bowel Sounds Hypoactive Musculoskeletal MS Exam: Joints Intact Extremeties Extremities Exam: No Edema Neurologic Neuro Exam: Moving All Extremities Assessment/Plan Problem List: (1) Acute renal failure superimposed on stage 4 chronic kidney disease ICD Codes: N17.9 - Acute kidney failure, unspecified; N18.4 - Chronic kidney disease, stage 4 (severe) Plan: Likely has underlying 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 Acute worsening initially could have been due to drop in BP, intravascular volume depletion. Likely has developed ATN. No improvement with hydration. Did not respond to Lasix. She is going to need dialysis. I discussed at length with her. As she is hard of hearing communicating with her is difficult, but I believe I was able to inform her of clinical situation and need for dialysis. She is extremely reluctant to the idea of starting dialysis. I believe she would agree to short term renal replacement therapy for JUAN. I also discussed over the phone with her son. I have informed him of the clinical situation. He will speak to his father and they will come to a decision. I have consulted drencher for Vascath placement. Also have written dialysis orders. In the meantime, I will renew Albumin and given her another fluid challenge. If no significant improvement in urine output, can try higher dose of Lasix. Prognosis is guarded. (2) Diabetes mellitus ICD Codes: E11.9 - Diabetes mellitus Status: Chronic Plan: continue insulin coverage to maintain blood glucose between 140 and 180 while hospitalized. (3) Hypertension ICD Codes: I10 - Hypertension Status: Chronic Plan: BP is currently low normal. Ramipril held. I will suspend Inspra for the time being. (4) Diarrhea ICD Codes: R19.7 - Diarrhea, unspecified Plan: Appears to have improved. C.diff negative. Today her abdomen is distended, may have developed ileus. (5) Coagulopathy ICD Codes: D68.9 - Coagulation defect, unspecified Plan: Hold Warfarin. (6) Hyponatremia ICD Codes: E87.1 - Hypo-osmolality and hyponatremia Plan: likely due to non osmotic release of ADH due to hypotension. Monitor. Lonnie Duarte MD Oct 30, 2017 09:59
[2017-10-30] MEDS ORDERED: ACETAMINOPHEN 325 MG TAB PO PRN (10:00)
[2017-10-30] MEDS ORDERED: MANNITOL 12.5 GM/50 ML VIAL IV PRN (10:00)
[2017-10-30] MEDS ORDERED: cloNIDine HCL 0.1 MG TAB PO PRN (10:00)
[2017-10-30] MEDS ORDERED: AZTREONAM INJ 500 MG in SODIUM CHLORIDE 0.9% INJ 100 ML IV SCH (10:00)
[2017-10-30] MEDS ORDERED: NITROGLYCERIN 0.4 MG SL 25 TABS/BTL SL PRN (10:00)
[2017-10-30] MEDS ORDERED: diphenhydrAMINE HCL 25 MG CAP PO PRN (10:00)
[2017-10-30] MEDS ORDERED: SODIUM CHLORIDE 0.9% FLUSH 10 ML FLUSH IV FLUSH PRN (10:00)
[2017-10-30] MEDS ORDERED: HEPARIN SODIUM - IV 10,000 UNITS/10 ML VIAL IV FLUSH PRN (10:00)
[2017-10-30] MEDS ORDERED: GELATIN 12 MM/7 MM FOAM TOP PRN (10:00)
[2017-10-30] MEDS ORDERED: GENTAMICIN SULFATE 20 MG/2 ML VIAL OTHER PRN (10:00)
[2017-10-30] MEDS ORDERED: ONDANSETRON HCL 4 MG/2 ML VIAL IV PUSH PRN (10:00)
[2017-10-30] MEDS ORDERED: HEPARIN SODIUM - IV 10,000 UNITS/10 ML VIAL PRN (10:00)
[2017-10-30] MEDS ORDERED: ALBUMIN 25% INJ 100 ML IV PRN (10:00)
[2017-10-30 11:09] LABS: CREATININE, RANDOM URINE 257.6 MG/DL
--- NOTE | 2017-10-30 12:07 | RADRPT ---
EXAM DATE/TIME: 10/30/2017 10:19 [facility] COMPARISON: No previous studies available for comparison. INDICATIONS : Abdominal discomfort. MEDICAL HISTORY : Diabetes mellitus type II. Myocardial infarction. Congestive heart failure. Hypercholesterolemi a. Coronary artery disease. SURGICAL HISTORY : Coronary artery stent. CABG. ENCOUNTER: Initial ACUITY: 1 day PAIN SCORE: 2/10 LOCATION: abdomen. FINDINGS: Supine view of the abdomen was performed. The abdominal bowel gas pattern is normal. No abnormal ma sses, calcifications, or organomegaly is seen. The osseous structures are unremarkable. CONCLUSION: No acute disease. Albertina Villar MD on October 30, 2017 at 12:03 Board Certified Radiologist. This report was verified electronically.
[2017-10-30] MEDS: AZTREONAM INJ 500 MG in SODIUM CHLORIDE 0.9% INJ 100 ML IV SCH ×2 (13:00→23:00)
[2017-10-30] MEDS: INSULIN DETEMIR 100 UNITS/ML VIAL SQ SCH (14:00)
--- NOTE | 2017-10-30 17:02 | RADRPT ---
EXAM DATE/TIME: 10/30/2017 16:23 [facility] COMPARISON: No previous studies available for comparison. INDICATIONS : Right internal jugular Vascath placement. MEDICAL HISTORY : Diabetes mellitus type II. Myocardial infarction. Congestive heart failure. CAD Hypercholesterolm ia SURGICAL HISTORY : Coronary artery stent. CABG. ENCOUNTER: Subsequent ACUITY: 4 - 6 days PAIN SCORE: 0/10 LOCATION: Right chest FINDINGS: Mild consolidation and small effusion again seen left lung base, not significantly changed. Right duane g remains clear. No pneumothorax. Heart size upper limits of normal. Patient has had previous median sternotomy and CABG. Cardiac pacer /defibrillator again noted. There is a new right internal jugular cordis with tip in the right atrium. CONCLUSION: The right internal jugular central venous catheter has its tip in the right atrium. No pneumothorax. Mild consolidation and small effusion at the left lung base unchanged. Kevin Sweet MD on October 30, 2017 at 16:58 Board Certified Radiologist. This report was verified electronically.
--- NOTE | 2017-10-30 19:07 | PD.PROCEDR ---
Procedure Note Procedure Central Line Procedure Note 14 Czech 20 cm right IJ Vas-Cath Diagnosis: Acute kidney injury requiring renal place and therapy Indications: Was consulted by Dr. Duarte with nephrology to assist in placing urgent dialysis catheter to facilitate renal replacement therapy. In my brief discussion with nephrology, this is an 82-year-old female with acute on chronic kidney disease now requiring renal replacement therapy. She has a left-sided ICD pacemaker. Right IJ is the preferred site for placement. I discussed at length with nephrology team as well as with the patient and her family. Everyone agrees to proceed. The hospitalist team will continue to manage the patient's medical problems. Consent: Written consent was obtained Anesthesia: 1% lidocaine locally Description of the Procedure: The patient was placed in the supine, mild- Trendelenburg position. The area was prepped and draped sterilely. A 19g needle was inserted under negative pressure aspiration and dark venous blood was obtained. A guidewire was inserted easily without resistance. A small incision was made using a #11 blade. Using a modified Seldinger technique, the dilators and 14 Czech 20 cm catheter were advanced over the guidewire without resistance. All ports were aspirated and flushed, and had brisk blood return. The line was secured at the skin using 2-0 silk interrupted sutures. A Biopatch and Transparent sterile dressing were applied. There were no immediate complications noted. There was minimal EBL. The patient tolerated the procedure well. Ultrasound Guidance: Ultrasound guidance was used to identify the internal jugular vein. The vascular anatomy of the right anterior neck was normal. The vessel was cannulated under direct, real-time ultrasound visualization. After placement of the guidewire, confirmation of the guidewire in the lumen of the vessel was made using ultrasound visualization, before dilation of the tract. A Chest x-ray has been ordered. I personally performed the procedure. Chest x-ray confirmed appropriate placement of the central venous catheter without evidence of pneumothorax or malposition. Critical care medicine will sign off Paul Vargas MD Oct 30, 2017 19:07
[2017-10-30] MEDS: PRAVASTATIN SOD 20 MG TAB PO SCH (20:55)
[2017-10-30] MEDS ORDERED: LIDOCAINE 1%/EPINEPHrine 1:100,000 SOLN 20 ML VIAL ONE (23:41)
[2017-10-31] MEDS ORDERED: SODIUM CHLORID 0.9% 500 ML INJ 500 ML IV ONE
[2017-10-31] MEDS: ALBUMIN 25% INJ 50 ML IV SCH
[2017-10-31 00:15] VITALS: O2SAT 100
[2017-10-31] MEDS ORDERED: TERBUTALINE INJ 1 MG/ML AMP SQ PRN (00:30)
[2017-10-31] MEDS ORDERED: NOREPINEPHRINE-DEXTROSE DRIP 250 ML IV PRN (00:30)
[2017-10-31 00:40] LABS: AUTOMATED NEUTROPHIL # 8.4 TH/MM3 (1.8-7.7); BASOPHIL % 0.2 % (0.0-2.0); EOSINOPHIL # 0.2 TH/MM3 (0-0.4); EOSINOPHIL % 1.8 % (0.0-4.0); HEMATOCRIT 27.1 % (35.0-46.0); HEMOGLOBIN 9.2 GM/DL (11.6-15.3); LYMPH % 2.4 % (9.0-44.0); LYMPHOCYTE # 0.2 TH/MM3 (1.0-4.8); MEAN CELL VOLUME 87.3 FL (80.0-100.0); MEAN CORPUSCULAR HEMOGLOBIN 29.7 PG (27.0-34.0); MEAN PLATELET VOLUME 9.2 FL (7.0-11.0); MONO % 7.3 % (0.0-8.0); MONOCYTE # 0.7 TH/MM3 (0-0.9); NEUT % 88.3 % (16.0-70.0); PLATELET COUNT 90 TH/MM3 (150-450); RED CELL DISTRIBUTION WIDTH 14.3 % (11.6-17.2); WHITE BLOOD COUNT 9.5 TH/MM3 (4.0-11.0)
[2017-10-31 00:53] LABS: INTERNATIONAL NORMALIZED RATIO 8.9 RATIO
[2017-10-31] MEDS ORDERED: VANCOMYCIN INJ 1,500 MG in SODIUM CHLORID 0.9% 500 ML INJ 500 ML IV ONE (01:00)
[2017-10-31 01:11] LABS: ALBUMIN 3.1 GM/DL (3.4-5.0); CALCIUM 7.1 MG/DL (8.5-10.1); CALCIUM-PROTEIN CORRECTED 7.5 MG/DL (8.5-10.1); CREATININE 3.33 MG/DL (0.50-1.00); MAGNESIUM 2.1 MG/DL (1.5-2.5); PHOSPHORUS 5.4 MG/DL (2.5-4.9); TOTAL BILIRUBIN ADULT 1.4 MG/DL (0.2-1.0); TOTAL PROTEIN 6.4 GM/DL (6.4-8.2); TROPONIN I 0.03 NG/ML (0.02-0.05)
[2017-10-31 01:18] LABS: OVALOCYTES 1+ (NORMAL)
[2017-10-31] MEDS ORDERED: EPINEPHrine HCL (1:10,000) 1 MG/10 ML SYRINGE IV ONE (01:42)
--- NOTE | 2017-10-31 11:27 | PD.CONS ---
[facility] Service Critical Care Medicine Consult Requested By Dr. Carey Reason for Consult Shock Primary Care Physician Enmanuel Ford MD History of Present Illness 82 year-old female past medical history of coronary artery disease status post CABG and stents, stroke, diabetes, hypertension, hyperlipidemia, on chronic anticoagulation with warfarin who presented to [facility] emergency department on 10/26/17 with diarrhea. She developed acute kidney injury and ultimately was started on hemodialysis on 10/31 after placement of right IJ Vas-Cath by the research and development specialist.. He remained under the care of the hospitalist service however nurse contacted me to evaluate bleeding from the right Vas-Cath. Patient had a pressure bag in place with ongoing oozing. I placed a suture and surgicell and hemostasis was obtained readily. She was normotensive though appeared poorly perfused with mottled skin. She was confused , moaning " I am so sick" and then became unresponsive. Her code status was ordered "no intubation". Obtained ABG which demonstrated metabolic acidemia with inadequate respiratory compensation with pH of 7.28/PaCO2 of 34/PA O2 of 312. Hgb on ABG was 8.3. She was placed on BiPAP. Stat labs were drawn. She became hypotensive in the 70s and received NS 500 mL IV bolus and was started on levophed. Noted urine cx + for staph aureus, added vancomycin. She rapidly deteriorated and went into PEA cardiac arrest. Her son was contacted to discuss code status and he stated she would not want CPR/shocks. Resuscitative efforts were discontinued and patient was in asystole. Review of Systems ROS Limitations: Clinical Condition Past Family Social History Allergies: Coded Allergies: ciprofloxacin (Unverified Allergy, Severe, Numbness, 10/25/17) diatrizoate meglumine (Unverified Allergy, Severe, Hives, 10/25/17) erythromycin base (Unverified Allergy, Severe, MAKES ME DOOPY, 10/25/17) gadobenic acid (Unverified Allergy, Severe, Hives, 10/25/17) gadodiamide (Unverified Allergy, Severe, Hives, 10/25/17) gadoteridol (Unverified Allergy, Severe, Hives, 10/25/17) iodixanol (Unverified Allergy, Severe, Hives, 10/25/17) iohexol (Unverified Allergy, Severe, Hives, 10/25/17) penicillin G (Unverified Allergy, Severe, RASH, 10/25/17) colchicine (Unverified Allergy, Unknown, 10/25/17) Past Medical History CAD s/p CABG and stents CHF CVA/TIA DM HTN HLD anticoagulated on Coumadin anxiety Past Surgical History CABG [id number] Cardiac cath with stent x1 Cholecystectomy Pacer/AICD placement Left eye cataract removal Vaginal abscess I&D Reported Medications Simvastatin 20 mg by mouth daily at bedtime Carvedilol 12.5 mg by mouth twice a day Warfarin 1.5 mg Tuesday and Tuesday, 2 mg Tuesday through Tuesday Ramipril 2.5 mg twice a day Eplerenone 50 mg by mouth daily Lasix 40 mg by mouth daily Insulin glargine 60 units subcutaneous daily Insulin sliding scale Uloric 40 mg by mouth daily Family History Unable to obtain from patient due to clinical condition Social History Unable to obtain from patient due to clinical condition Her son states that he has her healthcare surrogate Physical Exam Vital Signs Vital Signs Date Time Temp Pulse Resp B/P (MAP) Pulse Ox O2 Delivery O2 Flow Rate FiO2 10/31/17 00:15 100 100 10/30/17 20:00 98.0 87 18 97/52 (67) 97 10/30/17 18:00 78 10/30/17 16:00 97.3 78 21 107/69 (82) 97 10/30/17 16:00 78 10/30/17 14:00 85 10/30/17 12:00 82 10/30/17 12:00 97.5 82 16 113/63 (80) 95 Physical Exam GENERAL: Obese female, restless, anxious appearing, tachypneic SKIN: mottled, cool. HEAD: Atraumatic. Normocephalic. EYES: Pupils equal and round. No scleral icterus. No injection or drainage. ENT: No nasal bleeding or discharge. Mucous membranes pink and moist. NECK: R IJ Vascath in place with some oozing. CARDIOVASCULAR:irregular. No murmurs rubs or gallops. RESPIRATORY: Tachypneic, coarse bilateral breath sounds GASTROINTESTINAL: Abdomen soft, mildly distended. MUSCULOSKELETAL: Extremities without clubbing, cyanosis. 1+ edema all extremities. NEUROLOGICAL: Eyes open, restlessly moving all extremities Laboratory Laboratory Tests Test 10/31/17 00:06 1/29/18 00:20 Blood Gas Puncture Site RT RADIAL Blood Gas Patient Temperature 98.6 Blood Gas HCO3 15 Blood Gas Base Excess -10.4 Blood Gas Oxygen Saturation 97 Arterial Blood pH 7.28 Arterial Blood Partial Pressure CO2 34 Arterial Blood Partial Pressure O2 312 Arterial Blood Oxygen Content 12.1 Arterial Blood Carboxyhemoglobin 0.4 Arterial Blood Methemoglobin 1.5 Blood Gas Hemoglobin 8.3 Oxygen Delivery Device NASAL CANNULA Blood Gas Inspired Oxygen 3 White Blood Count 9.5 Red Blood Count 3.10 Hemoglobin 9.2 Hematocrit 27.1 Mean Corpuscular Volume 87.3 Mean Corpuscular Hemoglobin 29.7 Mean Corpuscular Hemoglobin Concent 34.0 Red Cell Distribution Width 14.3 Platelet Count 90 Mean Platelet Volume 9.2 Neutrophils (%) (Auto) 88.3 Lymphocytes (%) (Auto) 2.4 Monocytes (%) (Auto) 7.3 Eosinophils (%) (Auto) 1.8 Basophils (%) (Auto) 0.2 Neutrophils # (Auto) 8.4 Lymphocytes # (Auto) 0.2 Monocytes # (Auto) 0.7 Eosinophils # (Auto) 0.2 Basophils # (Auto) 0.0 CBC Comment AUTO DIFF Differential Comment AUTO DIFF CONFIRMED Platelet Estimate LOW Platelet Morphology Comment NORMAL Ovalocytes 1+ Crenated Cell 1+ Prothrombin Time 89.0 Prothromb Time International Ratio 8.9 Blood Urea Nitrogen 80 Creatinine 3.33 Random Glucose 187 Total Protein 6.4 Albumin 3.1 Calcium Level 7.1 Phosphorus Level 5.4 Magnesium Level 2.1 Alkaline Phosphatase 100 Aspartate Amino Transf (AST/SGOT) 71 Alanine Aminotransferase (ALT/SGPT) 38 Total Bilirubin 1.4 Sodium Level 134 Potassium Level 4.7 Chloride Level 101 Carbon Dioxide Level 19.0 Anion Gap 14 Estimat Glomerular Filtration Rate 13 Lactic Acid Level 3.4 Protein Corrected Calcium 7.5 Troponin I 0.03 Date/Time Source Procedure Growth Status 10/25/17 21:00 Stool Stool Cryptosporidium Exam - Final NEGATIVE - NO CRYPTOSPORIDIUM ANTIGEN... Complete 10/25/17 21:00 Stool Stool Giardia Antigen (FABIAN) - Final NEGATIVE - NO GIARDIA ANTIGEN DETECTE... Complete 10/29/17 03:05 Urine Catheterized Urine Urine Culture - Final Staphylococcus Aureus Complete Result Diagram: 10/31/171910/31/170 Assessment and Plan Problem List: (1) Anxiety disorder ICD Code: F41.9 - Anxiety disorder Status: Chronic (2) Shock ICD Code: R57.9 - Shock, unspecified Status: Acute (3) Respiratory failure ICD Code: J96.90 - Respiratory failure, unspecified, unspecified whether with hypoxia or hypercapnia Status: Acute (4) Coronary artery disease ICD Code: I25.10 - Atherosclerosis of coronary artery Status: Chronic (5) Chronic anticoagulation ICD Code: Z51.81 - Monitoring for long-term anticoagulant use; Z79.01 - retirement (current) use of anticoagulants Status: Chronic (6) Atrial fibrillation ICD Code: I48.91 - Atrial fibrillation Status: Acute (7) Dyslipidemia ICD Code: E78.5 - Dyslipidemia Status: Acute (8) Diabetes mellitus ICD Code: E11.9 - Diabetes mellitus Status: Chronic (9) Hypertension ICD Code: I10 - Hypertension Status: Chronic (10) Supratherapeutic INR ICD Code: R79.1 - Abnormal coagulation profile Status: Acute Assessment and Plan NEURO: History of stroke RESP: Acute respiratory failure Patient is DO NOT INTUBATE. Was placed on BiPAP CV: Atrial fibrillation On chronic anticoagulation with warfarin Pacemaker in place Hypertension Hyperlipidemia Coronary artery disease with prior CABG and stents Shock of unclear etiology Given normal saline 500 ML's, albumin. Started on levo fed to maintain mean arterial pressure greater than 65. Evaluation of shock ongoing when patient developed cardiac arrest and son stated he was healthcare surrogate and desired DNR. GI: Diarrhea on admission, resolved C. difficile negative FEN/RENAL: Acute kidney injury with probable ischemic ATN right IJ vas catheter and hemodialysis initiated 10/30. 250 removed. ID: Urinary tract infection Has been on aztreonam since 10/30. Urine culture with staph aureus, sensitivity pending. Will give dose of vancomycin, pending sensitivity. HEME: Coagulopathy with supratherapeutic INR Warfarin has been on hold. Last INR is 4.2. No clinically apparent bleeding except for some oozing at the Vas-Cath site which was addressed. Repeat INR 8.9 but not aware of this result until after . ENDO: Diabetes mellitus Detemir 26 units subcutaneous every 24 hours Insulin sliding scale PROPH: Supratherapeutic INR providing DVT prophylaxis. ACCESS: Peripheral IV Code status - DNR per d/w son who states he is her healthcare surrogate. CCT 40 minutes exclusive of separately billable procedures. Lenora Ambrose MD Oct 31, 2017 11:27
--- NOTE | 2017-10-31 11:54 | HHI.DS ---
Summary Note Date of : Oct 31, 2017 Time Of : 0143 Admission Date Oct 28, 2017 at 09:02 Admitting Diagnosis infectious diarrhea, dehydration, weakness Diagnosis at Time of : (1) Diarrhea ICD Code: R19.7 - Diarrhea, unspecified Diagnosis: Principal (2) Gastroenteritis ICD Code: K52.9 - Noninfective gastroenteritis and colitis, unspecified Diagnosis: Principal (3) Acute renal insufficiency ICD Code: N28.9 - Acute renal insufficiency Diagnosis: Secondary (4) Cardiac arrest ICD Code: I46.9 - Cardiac arrest, cause unspecified Diagnosis: Principal (5) Coagulopathy ICD Code: D68.9 - Coagulation defect, unspecified Diagnosis: Secondary (6) Hyponatremia ICD Code: E87.1 - Hypo-osmolality and hyponatremia Diagnosis: Secondary (7) Respiratory failure ICD Code: J96.90 - Respiratory failure, unspecified, unspecified whether with hypoxia or hypercapnia Diagnosis: Secondary (8) Shock ICD Code: R57.9 - Shock, unspecified Diagnosis: Secondary (9) Supratherapeutic INR ICD Code: R79.1 - Abnormal coagulation profile (10) Dyslipidemia ICD Code: E78.5 - Dyslipidemia Diagnosis: Secondary (11) Atrial fibrillation ICD Code: I48.91 - Atrial fibrillation Diagnosis: Secondary (12) Coronary artery disease ICD Code: I25.10 - Atherosclerosis of coronary artery Diagnosis: Secondary (13) Diabetes mellitus ICD Code: E11.9 - Diabetes mellitus Diagnosis: Secondary (14) Hypertension ICD Code: I10 - Hypertension Diagnosis: Secondary Procedures R [facility] 10/30 (Dr. Vargas) Brief History Written by Hayley Laughlin, acting as scribe for Dr. Van on 10/26/17 at 13: 00. 82-year-old female with history of CAD s/p CABG and stents, CHF, CVA/TIA, DM, HTN, HLD, anticoagulated on Coumadin, anxiety, presents with a 3 day history of intractable diarrhea. The patient reports nonbloody watery diarrhea 5x a day over the past 3 days. She denies any fever/chills, abdominal pain, nausea, or vomiting. She has not been eating well since the diarrhea began 3 days ago. Last night her blood sugar dropped to 50 which she attributes to decreased oral intake and diarrhea. She is also on Lantus at home. Denies any recent antibiotic use. Denies any history of Cdiff. Denies any sick contacts or recent travel. Denies any other medical complaints including no chest pain, shortness of breath, or urinary complaints. She is not sure exactly why she is on Coumadin. She is not aware of any history of arrhythmia. Her assistant media planner is Dr. Lowe. Since her arrival to the ED, she reports continued episodes of diarrhea overnight and today while in the hospital. She also reports exacerbation of her chronic left shoulder pain after working with physical therapy today. She is requesting tylenol for the pain. She has no other complaints to report at this time. CBC/BMP: 10/31/17 0020 10/31/17 0020 Significant Findings Laboratory Tests Test 10/28/17 14:30 10/28/17 14:55 10/28/17 21:11 10/29/17 01:20 Prothrombin Time 48.1 SEC (9.8-11.6) 52.8 SEC (9.8-11.6) Red Blood Count 3.44 MIL/MM3 (4.00-5.30) Hemoglobin 10.1 GM/DL (11.6-15.3) Bedside Hemoglobin 9.9 G/DL (11.6-15.3) Hematocrit 30.2 % (35.0-46.0) Bedside Hematocrit 29.0 % (35.0-46.0) Neutrophils (%) (Auto) 89.5 % (16.0-70.0) Lymphocytes (%) (Auto) 5.5 % (9.0-44.0) Lymphocytes # (Auto) 0.4 TH/MM3 (1.0-4.8) Blood Gas HCO3 17 mmol/L (22-26) Blood Gas Base Excess -8.6 mmol/L (-2-2) Arterial Blood pH 7.27 (7.380-7.420) Arterial Blood Partial Pressure O2 277 mmHg (61-120) Blood Gas Hemoglobin 9.9 G/DL (12.0-16.0) Bedside Sodium 130 MMOL/L (137-144) Blood Urea Nitrogen 93 MG/DL (7-18) Creatinine 3.19 MG/DL (0.50-1.00) Random Glucose 164 MG/DL (74-106) Albumin 2.2 GM/DL (3.4-5.0) Calcium Level 7.5 MG/DL (8.5-10.1) Aspartate Amino Transf (AST/SGOT) 50 U/L (15-37) Sodium Level 129 MEQ/L (136-145) Bedside Chloride 100 MMOL/L (102-111) Bedside Blood Urea Nitrogen 101 MG/DL (5-21) Bedside Creatinine 3.1 MG/DL (0.6-1.3) Estimat Glomerular Filtration Rate 14 ML/MIN (>89) Bedside Glucose 165 MG/DL (68-110) Lactic Acid Level 2.4 mmol/L (0.4-2.0) Test 10/29/17 02:00 10/29/17 03:05 10/29/17 12:45 10/29/17 13:15 Red Blood Count 3.31 MIL/MM3 (4.00-5.30) Hemoglobin 9.7 GM/DL (11.6-15.3) Hematocrit 29.1 % (35.0-46.0) Neutrophils (%) (Auto) 88.2 % (16.0-70.0) Lymphocytes (%) (Auto) 5.0 % (9.0-44.0) Lymphocytes # (Auto) 0.3 TH/MM3 (1.0-4.8) Blood Urea Nitrogen 98 MG/DL (7-18) 100 MG/DL (7-18) Creatinine 3.50 MG/DL (0.50-1.00) 3.44 MG/DL (0.50-1.00) Random Glucose 111 MG/DL (74-106) 111 MG/DL (74-106) Calcium Level 7.6 MG/DL (8.5-10.1) 7.6 MG/DL (8.5-10.1) Sodium Level 129 MEQ/L (136-145) 129 MEQ/L (136-145) Carbon Dioxide Level 19.9 MEQ/L (21.0-32.0) 19.0 MEQ/L (21.0-32.0) Estimat Glomerular Filtration Rate 13 ML/MIN (>89) 13 ML/MIN (>89) Test 10/30/17 04:40 10/31/17 00:06 10/31/17 00:20 Prothrombin Time 42.0 SEC (9.8-11.6) 89.0 SEC (9.8-11.6) Blood Urea Nitrogen 122 MG/DL (7-18) 80 MG/DL (7-18) Creatinine 4.22 MG/DL (0.50-1.00) 3.33 MG/DL (0.50-1.00) Random Glucose 200 MG/DL (74-106) 187 MG/DL (74-106) Albumin 2.4 GM/DL (3.4-5.0) 3.1 GM/DL (3.4-5.0) Calcium Level 7.2 MG/DL (8.5-10.1) 7.1 MG/DL (8.5-10.1) Phosphorus Level 6.4 MG/DL (2.5-4.9) 5.4 MG/DL (2.5-4.9) Sodium Level 126 MEQ/L (136-145) 134 MEQ/L (136-145) Potassium Level 5.3 MEQ/L (3.5-5.1) Chloride Level 96 MEQ/L (98-107) Carbon Dioxide Level 17.7 MEQ/L (21.0-32.0) 19.0 MEQ/L (21.0-32.0) Estimat Glomerular Filtration Rate 10 ML/MIN (>89) 13 ML/MIN (>89) Blood Gas HCO3 15 mmol/L (22-26) Blood Gas Base Excess -10.4 mmol/L (-2-2) Arterial Blood pH 7.28 (7.380-7.420) Arterial Blood Partial Pressure CO2 34 mmHg (38-42) Arterial Blood Partial Pressure O2 312 mmHg (61-120) Blood Gas Hemoglobin 8.3 G/DL (12.0-16.0) Red Blood Count 3.10 MIL/MM3 (4.00-5.30) Hemoglobin 9.2 GM/DL (11.6-15.3) Hematocrit 27.1 % (35.0-46.0) Platelet Count 90 TH/MM3 (150-450) Neutrophils (%) (Auto) 88.3 % (16.0-70.0) Lymphocytes (%) (Auto) 2.4 % (9.0-44.0) Neutrophils # (Auto) 8.4 TH/MM3 (1.8-7.7) Lymphocytes # (Auto) 0.2 TH/MM3 (1.0-4.8) Platelet Estimate LOW (NORMAL) Ovalocytes 1+ (NORMAL) Crenated Cell 1+ (NORMAL) Prothromb Time International Ratio 8.9 RATIO Aspartate Amino Transf (AST/SGOT) 71 U/L (15-37) Total Bilirubin 1.4 MG/DL (0.2-1.0) Lactic Acid Level 3.4 mmol/L (0.4-2.0) Protein Corrected Calcium 7.5 MG/DL (8.5-10.1) Imaging Last 72 hours Impressions Chest X-Ray 10/30/17 0000 Signed Impressions: Service Date/Time: Monday, October 30, 2017 16:23 - CONCLUSION: The right internal jugular central venous catheter has its tip in the right atrium. No pneumothorax. Mild consolidation and small effusion at the left lung base unchanged. Kevin Sweet MD Abdomen X-Ray 10/30/17 0000 Signed Impressions: Service Date/Time: Monday, October 30, 2017 10:19 - CONCLUSION: No acute disease. Albertina Villar MD Renal Ultrasound 10/29/17 0000 Signed Impressions: Service Date/Time: Sunday, October 29, 2017 16:00 - CONCLUSION: Tiny nonobstructing stones in both kidneys. Otherwise within normal limits. Kevin Sweet MD Head CT 10/29/17 0000 Signed Impressions: Service Date/Time: Sunday, October 29, 2017 20:35 - CONCLUSION: No acute intracranial abnormality demonstrated. Kevin Sweet MD Chest X-Ray 10/29/17 0000 Signed Impressions: Service Date/Time: Sunday, October 29, 2017 07:34 - CONCLUSION: Abdomen/Pelvis CT 10/29/17 0000 Signed Impressions: Service Date/Time: Sunday, October 29, 2017 03:23 - CONCLUSION: 1. No acute intra-abdominal abnormality is seen. 2. Scattered colonic diverticula. 3. 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 The patient is status post sternotomy. 4. Mild free fluid in the pelvis. Kevin North MD Hospital Course 82 year-old female past medical history of coronary artery disease status post CABG and stents, stroke, diabetes, hypertension, hyperlipidemia, on chronic anticoagulation with warfarin who presented to [facility] emergency department on 10/26/17 with diarrhea. She developed acute kidney injury and ultimately was started on hemodialysis on 1/29 after placement of right IJ Vas-Cath by the computer graphics illustrator.. He remained under the care of the hospitalist service however nurse contacted me to evaluate bleeding from the right Vas-Cath. Patient had a pressure bag in place with ongoing oozing. I placed a suture and surgicell and hemostasis was obtained readily. She was normotensive though appeared poorly perfused with mottled skin. She was confused , moaning " I am so sick" and then became unresponsive. Her code status was ordered "no intubation". Obtained ABG which demonstrated metabolic acidemia with inadequate respiratory compensation with pH of 7.28/PaCO2 of 34/PA O2 of 312. Hgb on ABG was 8.3. She was placed on BiPAP. Stat labs were drawn. She became hypotensive in the 70s and received NS 500 mL IV bolus and was started on levophed. Noted urine cx + for staph aureus, added vancomycin. She rapidly deteriorated and went into PEA cardiac arrest. Her son was contacted to discuss code status and he stated she would not want CPR/shocks. Resuscitative efforts were discontinued and patient was in asystole. She was pronounced at 01:43 Lenora Ambrose MD Oct 31, 2017 11:53
== END 2017-10-31 01:43 | disposition expired | DRG 391 ==
LOC: NEPE 18:42 → NEDA 23:00 → NEDH 10-26 03:19 → NEPFCDU 10-26 13:13 → OBSVTOIN 10-28 09:02 → N04B 10-28 16:49 → HIME 10-29 01:45
PROVIDERS: ADMIT Hospitalist; ATTEND Hospitalist
PROC: 02H633Z Insertion of Infusion Device into Right Atrium, Percutaneous Approach (ICD-10-PCS; principal; 2017-10-30)
PROC: B244ZZZ Ultrasonography of Right Heart (ICD-10-PCS; 2017-10-30)
PROC: 5A1D70Z Performance of Urinary Filtration, Intermittent, Less than 6 Hours Per Day (ICD-10-PCS; 2017-10-30)
PROC: 5A09357 Assistance with Respiratory Ventilation, Less than 24 Consecutive Hours, Continuous Positive Airway Pressure (ICD-10-PCS; 2017-10-31)
DX: A08.4 Viral intestinal infection, unspecified (principal); J96.01 Acute respiratory failure with hypoxia; N17.0 Acute kidney failure with tubular necrosis; R57.9 Shock, unspecified; E87.2 Acidosis; N18.4 Chronic kidney disease, stage 4 (severe); I13.0 Hypertensive heart and chronic kidney disease with heart failure and stage 1 through stage 4 chronic kidney disease, or unspecified chronic kidney disease; I50.22 Chronic systolic (congestive) heart failure; E11.22 Type 2 diabetes mellitus with diabetic chronic kidney disease; Z79.4 Long term (current) use of insulin; I48.91 Unspecified atrial fibrillation; E86.0 Dehydration; I27.20 Pulmonary hypertension, unspecified; E87.1 Hypo-osmolality and hyponatremia; Z68.41 Body mass index [BMI] 40.0-44.9, adult; E66.9 Obesity, unspecified; N39.0 Urinary tract infection, site not specified; B95.61 Methicillin susceptible Staphylococcus aureus infection as the cause of diseases classified elsewhere; I46.9 Cardiac arrest, cause unspecified; R79.1 Abnormal coagulation profile; E78.5 Hyperlipidemia, unspecified; I25.10 Atherosclerotic heart disease of native coronary artery without angina pectoris; Z95.1 Presence of aortocoronary bypass graft; Z95.5 Presence of coronary angioplasty implant and graft; I25.5 Ischemic cardiomyopathy; Z79.01 Long term (current) use of anticoagulants; Z95.810 Presence of automatic (implantable) cardiac defibrillator; Z86.73 Personal history of transient ischemic attack (TIA), and cerebral infarction without residual deficits; F41.9 Anxiety disorder, unspecified; G89.29 Other chronic pain; M25.512 Pain in left shoulder; H91.90 Unspecified hearing loss, unspecified ear; G47.30 Sleep apnea, unspecified; Z66 Do not resuscitate
CPT/HCPCS: 36556; 36600; 70450; 71045; 73030; 74018; 74176; 76775; 76937; 80048; 80053; 80069; 81001; 82550; 82570; 82805; 82948; 83605; 83690; 83735; 84100; 84300; 84484; 85025; 85610; 85730; 86403; 86850; 86900; 86901; 87086; 87147; 87186; 87328; 87329; 87493; 87506; 87641; 90935; 93005; 94002; 94664; 95819; 96360; 96361; 96372; 96374; 96375; G0378; J0171; J0780; J1580; J1644; J1815; J1940; J2405; J2930; J3370; J7030; J7040; P9047; P9612